=== PATIENT | male | born 1945 | race Caucasian/White ===

== ENCOUNTER 2022-04-02 16:53 | Inpatient (IN) | payer MEDICARE, OTHER, SELFPAY ==
--- NOTE | ~2022-04-02 | CT_ITS ---
EXAMINATION: CT ABDOMEN AND PELVIS WITHOUT CONTRAST CLINICAL INFORMATION: Fever, abd pain, bloody diarrhea, ? Isch bowel COMPARISON: CTA abdomen 03/11/2007 TECHNIQUE: Multidetector volumetric imaging was performed from the superior aspect of the liver through the pubic symphysis. Sagittal and coronal reformatted images were obtained on the technologist's workstation. This CT examination was performed using dose optimization techniques as appropriate, variously including the following: *Automated exposure control *Adjustment of mA and/or kV according to patient size (this includes techniques or standardized protocols for targeted exams where dose is matched to indication/reason for exam; i.e. extremities or head) *Use of iterative reconstruction technique DLP: 798 mGy-cm FINDINGS: LUNG BASES: The visualized lung bases are unremarkable. LIVER, GALLBLADDER, AND BILIARY TREE: The liver is normal in size, shape, and attenuation. No focal hepatic lesion or biliary ductal dilatation is present. The gallbladder is unremarkable with no evidence of radiopaque gallstones, gallbladder wall thickening, or obvious pericholecystic inflammatory changes. PANCREAS: Unremarkable. SPLEEN: Unremarkable. ADRENAL GLANDS: Unremarkable. KIDNEYS AND URETERS: The kidneys are normal in size, shape, and attenuation. A huge benign Bosniak class I right renal cyst compresses the right kidney and has increased in size significantly from 2007 when this measured 8.6 cm and currently measures 14.2 cm in greatest transverse dimension. 2 smaller Bosniak class I cysts are noted in the left kidney the largest measuring 3.4 cm. No solid renal masses are seen. No hydronephrosis, hydroureter, or calculi seen. No perinephric stranding. BLADDER: Obscured by artifact from left hip prosthesis. GASTROINTESTINAL TRACT: There is a grossly abnormal loop of sigmoid colon with marked fusiform dilatation measuring 11.3 cm in greatest dimension. Inflammatory changes are present around this loop worrisome for ischemia. This is a completely new finding when compared to the prior CT scan from 2006. The remainder of the colon is unremarkable. No significant small bowel dilatation is seen. ABDOMINAL WALL: No significant hernia is appreciated. LYMPH NODES: No retroperitoneal lymphadenopathy. VASCULAR: At the time of the 2006 CTA, an abdominal aortic aneurysm was present along with iliac artery dilatation and fusiform dilatation of the common femoral arteries. Marked calcification is present in these vessels now and the patient appears to have undergone a aortobifemoral bypass graft which is not opacified on the current study. PELVIC VISCERA: Prostate obscured by artifact from left hip prosthesis. OSSEOUS STRUCTURES: Degenerative changes present in the spine with grade 1 anterolisthesis of L5 upon S1. Left hip prosthesis present. CT/CT abdomen pelvis wo IV con IMPRESSION: 1. Markedly abnormal loop of sigmoid colon with surrounding inflammatory changes worrisome for ischemia or colitis . No free air, pneumatosis or free fluid is seen. 2. Incidental note made of bilateral benign Bosniak class I renal cysts which need no further imaging or follow-up. 3. Suspect aortobifemoral bypass graft for AAA which is not opacified on the current study. 4. Degenerative changes in the spine with grade 1 anterolisthesis of L5 upon S1. Fleischner guidelines were followed. This critical result was discussed with Dr. Gamboa at 10:15 PM on the day the exam and it was ascertained that the content and urgency of the report was understood at the time of direct communication.
--- NOTE | ~2022-04-02 | XR_ITS ---
EXAMINATION: XR CHEST CLINICAL INFORMATION: Fever COMPARISON: None TECHNIQUE: Frontal view of the chest was obtained. FINDINGS: Rotated positioning. Cardiac and mediastinal silhouette is within normal limits. Bilateral first costochondral junction projects over the medial aspect of bilateral upper lungs, limiting evaluation of the underlying structures. In the lungs are otherwise, no focal consolidation is seen. No effusion, edema or pneumothorax. Degenerative changes in the spine. Upper abdomen appears unremarkable. There is a 8 mm rounded density in the proximal humeral metaphysis, could be related to red marrow, with a lesion in this region difficult to exclude. XR/XR chest 1V IMPRESSION: No evidence of focal consolidation. 8mm density projected over the right proximal humeral metaphysis, indeterminate. This could represent normal variant marrow, with a subtle lesions region difficult exclude. Recommended follow-up dedicated humerus radiographs for further evaluation..
--- NOTE | ~2022-04-02 | XR_ITS ---
EXAMINATION: XR HUMERUS, RIGHT CLINICAL INFORMATION: Lesion on chest radiograph COMPARISON: Chest radiograph 04/02/2022 TECHNIQUE: AP and lateral views of the right humerus. FINDINGS: The 8mm round density projecting over the proximal right humeral diaphysis on the chest radiograph is no longer identified on the dedicated right humerus radiographs and may have been external to the patient. No suspicious bone lesion. There is moderate acromioclavicular and glenohumeral osteoarthritis. No acute osseous abnormality. XR/XR humerus RT IMPRESSION: No suspicious findings. The 8 mm round density projecting over the proximal right humeral diaphysis on the chest radiograph is no longer identified and may have been external to the patient.
[2022-04-02 16:39] VITALS: BP 116/80; PULSE 72; O2SAT 97
[2022-04-02 17:01] VITALS: BP 101/44; RESP 20; TEMP 36.6; BMI 22.1
[2022-04-02 17:12] VITALS: BP 101/44; PULSE 76; RESP 16; TEMP 38.3; O2SAT 76; BMI 20.3
--- NOTE | 2022-04-02 17:19 | ED_ITS ---
HPI - General Adult General Chief complaint: General Medical Stated complaint: bilateral lower leg swelling Source: patient and EMS Limitations: other (Dementia with inability to recall history) History of Present Illness HPI narrative: Patient apparently lives alone with family that checks in on him daily. He was complaining of leg pain and EMS was called. Patient of self complains of leg pain and diarrhea. He is unable to convey how long he has had the symptoms or if he has any other symptoms. Related Data Allergies Allergy/AdvReac Type Severity Reaction Status Date / Time Unable to Assess Allergy Verified 04/02/22 17:15 Review of Systems Review of Systems: Patient unable to answer review of systems questions secondary to dementia [facility] Social History Social History Advance Directives: No Advance Directives Information Provided: No Physical Exam ED Vital Signs: Vital Signs - 24 hr 04/02/22 17:01 04/02/22 17:12 04/02/22 21:33 Temperature 97.8 F 101 F H 97.8 F Pulse Rate 76 Respiratory Rate 20 16 Blood Pressure 101/44 L 101/44 L Pulse Oximetry 76 L Oxygen Delivery Method Room Air BMI result Body Mass Index 20.3 Const Other: Patient is awake complaining of feeling hungry and bilateral leg pain. He had an episode of maroon bloody diarrhea here in the emergency department but denies having bloody diarrhea Blood pressure is 101/44. Oxygen saturation is 76 but with a poor waveform and patient has nose obvious signs of respiratory distress. Is febrile to 101 degrees F HENMT Other: Normocephalic atraumatic Neck Other: No meningeal signs Resp Other: Clear and equal bilaterally without wheezes rales or rhonchi Cardio Other: Regular rate and rhythm without murmurs rubs or gallops GI Other: Soft. His abdomen is distended. No tenderness on exam. Hyperactive bowel sounds Skin Other: In general warm pink and dry. Bilateral lower extremities from the knees to the ankles are very erythematous, warm, indurated. No obvious abscesses. Neuro Other: Nonfocal neuro exam. Patient is confused to person place time and event. Extrem Other: See the above skin exam. No obvious extremity trauma Course Course Course Narrative: Patient with multiple issues. He is febrile with an obvious bilateral lower extremity cellulitis. He is not hypotensive but sepsis is certainly possible. He is also having maroon apparently bloody diarrhea. He is unable to recall what medications he is on or if he takes blood thinners. His abdomen is distended but nontender. He is reading is hypoxic but does not have respiratory symptoms and does appear mottled and clamped down, so likely this is an apparent reading. Will treat with IV fluids and monitor saturation. IV fluids, 30 mL/kilos sepsis protocol. IV vanco and Zosyn for probable cellulitis as the source. Protonix IV for GI bleed Type and screen 18:59. Attempted to call family member, Dread Diane, at [phone]. Unsuccessful 19:39. Chest x-ray shows nonspecific nonacute lesion over right humerus with follow-up humerus x-ray recommended. X-ray ordered 22:38. Follow-up x-ray of humerus shows no evidence of pathology. CT scan, however, shows large dilated loop of sigmoid bowel with surrounding inflammatory changes. Concern for infection versus ischemia. He has a normal white count and normal lactic acid however. But given fever and hemoglobin of 8.4, will continue with plan for broad- spectrum antibiotics and hospitalization. Will also trend his hemoglobin and lactic acid. Case was discussed with surgery, Dr. Forman, who will consult in the morning. Medications Administered Discontinued Medications Generic Name Dose Route Start Last Admin Trade Name Freq PRN Reason Stop Dose Admin Acetaminophen 975 mg 04/02/22 17:15 04/02/22 19:17 Acetaminophen 325 Mg Tablet PO 04/02/22 17:16 975 mg ONCE ONE Administration Haloperidol Lactate 2 mg 04/02/22 17:15 04/02/22 19:11 Haloperidol Lactate 5 Mg/Ml Vial IVPUSH 04/02/22 17:16 Not Given ONCE ONE Haloperidol Lactate 5 mg 04/02/22 19:09 04/02/22 19:11 Haloperidol Lactate 5 Mg/Ml Vial IM 04/02/22 19:10 5 mg STAT STA Administration Piperacillin Sod/Tazobactam 50 mls @ 100 mls/hr 04/02/22 17:15 04/02/22 21:13 Sod 3.375 gm/ Sodium Chloride IV 04/02/22 17:44 Infused ONCE ONE Infusion Vancomycin HCl 1,500 mg/ 500 mls @ 333.333 mls/hr 04/02/22 17:15 04/02/22 21:10 Sodium Chloride IV 04/02/22 18:44 333.33 mls/hr POSTOP ONE Administration Sodium Chloride 2,040 mls @ 2,040 mls/hr 04/02/22 17:15 04/02/22 19:26 Ns 30 ml/kg infuse over 1 hr (2040 ml) 04/02/22 18:14 2,040 mls/hr IV Administration .Q1H STA Pantoprazole Sodium 80 mg 04/02/22 17:26 04/02/22 19:17 Pantoprazole Sodium 40 Mg/10 Ml Vial IVPUSH 04/02/22 17:27 80 mg ONCE ONE Administration Medical Decision Making Lab Data Result Diagrams: 04/02/22 19:35 04/02/22 19:35 Labs: Lab Results 04/02/22 04/02/22 04/02/22 Range/Units 19:35 19:35 19:35 WBC 7.4 (4.8-10.8) X10*3/uL RBC 2.98 L (4.60-5.80) X10*6/uL Hgb 8.2 L (14.0-18.0) g/dl Hct 26.3 L (42.0-52.0) % MCV 88.3 (80.0-98.0) fL MCH 27.5 (27.0-33.0) pg MCHC 31.2 (31.0-36.0) g/dl RDW 17.0 H (11.0-16.0) % Plt Count 400 (160-400) X10*3/uL MPV 7.8 L (9.4-12.4) fL Immature Gran % (Auto) 2.6 H (0.0-0.4) % Neut % (Auto) 58.6 (45-73) % Lymph % (Auto) 19.1 L (20-40) % [place] % (Auto) 17.5 H (2-11) % Eos % (Auto) 1.7 (0-4) % Baso % (Auto) 0.5 (0-2) % Lymph # (Auto) 1.4 (1.2-4.9) X10*3/uL [place] # (Auto) 1.3 H (0.1-1.2) X10*3/uL Eos # (Auto) 0.1 (0.0-0.4) X10*3/uL Baso # (Auto) 0.0 (0.0-0.2) X10*3/uL Abs Immat Gran (auto) 0.19 H (0.00-0.03) X10*3/uL Absolute Neuts (auto) 4.4 (2.0-8.3) x10*3/uL Absolute Nucleated RBC 0.000 (0.0-0.012) X10*3/uL Nucleated RBC % (auto) 0.0 (0.0-0.2) /100WBC Sodium 138 (135-145) mmol/L Potassium 4.3 (3.3-5.1) mmol/L Chloride 108 (96-108) mmol/L Carbon Dioxide 24 (22-29) mmol/L Anion Gap 10 L (12-20) BUN 22 H (9-16) mg/dL Creatinine 0.90 (0.5-1.4) mg/dL Estim Creat Clear Calc 68.2 Estimated GFR > 60 Random Glucose 87 (60-115) mg/dL Lactic Acid 1.6 (0.5-2.0) mmol/L Calcium 7.9 L (8.4-10.2) mg/dL Total Bilirubin 0.3 (0.0-1.0) mg/dL AST 10 (5-37) U/L ALT 10 (0-40) U/L Alkaline Phosphatase 71 (39-117) U/L Troponin I High Sens (<3.5-35.0) ng/L Total Protein 5.0 L (6.5-8.0) g/dL Albumin 2.3 L (3.5-5.0) g/dL 04/02/22 Range/Units 19:35 WBC (4.8-10.8) X10*3/uL RBC (4.60-5.80) X10*6/uL Hgb (14.0-18.0) g/dl Hct (42.0-52.0) % MCV (80.0-98.0) fL MCH (27.0-33.0) pg MCHC (31.0-36.0) g/dl RDW (11.0-16.0) % Plt Count (160-400) X10*3/uL MPV (9.4-12.4) fL Immature Gran % (Auto) (0.0-0.4) % Neut % (Auto) (45-73) % Lymph % (Auto) (20-40) % [place] % (Auto) (2-11) % Eos % (Auto) (0-4) % Baso % (Auto) (0-2) % Lymph # (Auto) (1.2-4.9) X10*3/uL [place] # (Auto) (0.1-1.2) X10*3/uL Eos # (Auto) (0.0-0.4) X10*3/uL Baso # (Auto) (0.0-0.2) X10*3/uL Abs Immat Gran (auto) (0.00-0.03) X10*3/uL Absolute Neuts (auto) (2.0-8.3) x10*3/uL Absolute Nucleated RBC (0.0-0.012) X10*3/uL Nucleated RBC % (auto) (0.0-0.2) /100WBC Sodium (135-145) mmol/L Potassium (3.3-5.1) mmol/L Chloride (96-108) mmol/L Carbon Dioxide (22-29) mmol/L Anion Gap (12-20) BUN (9-16) mg/dL Creatinine (0.5-1.4) mg/dL Estim Creat Clear Calc Estimated GFR Random Glucose (60-115) mg/dL Lactic Acid (0.5-2.0) mmol/L Calcium (8.4-10.2) mg/dL Total Bilirubin (0.0-1.0) mg/dL AST (5-37) U/L ALT (0-40) U/L Alkaline Phosphatase (39-117) U/L Troponin I High Sens 3.4 (<3.5-35.0) ng/L Total Protein (6.5-8.0) g/dL Albumin (3.5-5.0) g/dL Critical Care Time Critical Care Time Critical Care Time: Yes Total Critical Care Time: 90 Attestation: Patient with possible sepsis as well as active GI bleed. Critical care time outside of separately billable procedures
--- NOTE | 2022-04-02 18:03 | PC.NURSE ---
PT COMBATIVE REFUSING ALL CARE, DR WILEY AWARE, PT ATTEMPTING TO LEAVE SEVERAL TIMES CAMERA 39 PLACED IN ROOM
[2022-04-02] MEDS: Haloperidol Lactate 5 MG/ML VIAL IM (19:11)
--- NOTE | 2022-04-02 19:11 | PC.NURSE ---
PT FINALLY ALLOWED STAFF TO OBTAIN AN IV
[2022-04-02] MEDS: Pantoprazole Sodium 40 MG/10 ML VIAL 80 MG IVPUSH (19:17)
[2022-04-02] MEDS: Acetaminophen 325 MG TABLET 975 MG PO (19:17)
[2022-04-02] MEDS: Piperacillin Sodium/Tazobactam 3.375 GM in 0.9 % Sodium Chloride 50 ML IV (19:25)
[2022-04-02] MEDS: 0.9 % Sodium Chloride 2,040 ML 2040 ML IV (19:26)
[2022-04-02 19:43] LABS: MANUAL DIFF FLAG NO
[2022-04-02 19:44] LABS: Basophils Percent Auto 0.5 % (0-2); Eosinophils Absolute Auto 0.1 X10*3/uL (0.0-0.4); Eosinophils Percent Auto 1.7 % (0-4); Hematocrit 26.3 % (42.0-52.0); Hemoglobin 8.2 g/dl (14.0-18.0); Imm Gran Abs Auto 0.19 X10*3/uL (0.00-0.03); Imm Gran Pct Auto 2.6 % (0.0-0.4); Lymphocytes Absolute Auto 1.4 X10*3/uL (1.2-4.9); Lymphocytes Percent Auto 19.1 % (20-40); Mean Corpuscular HGB Conc 31.2 g/dl (31.0-36.0); Mean Corpuscular Hemoglobin 27.5 pg (27.0-33.0); Mean Corpuscular Volume 88.3 fL (80.0-98.0); Mean Platelet Volume 7.8 fL (9.4-12.4); Monocytes Absolute Auto 1.3 X10*3/uL (0.1-1.2); Monocytes Percent Auto 17.5 % (2-11); Neutrophils Absolute Auto 4.4 x10*3/uL (2.0-8.3); Neutrophils Percent Auto 58.6 % (45-73); Platelet Count 400 X10*3/uL (160-400); Red Blood Count 2.98 X10*6/uL (4.60-5.80); White Blood Count 7.4 X10*3/uL (4.8-10.8)
[2022-04-02 19:55] LABS: Lactic Acid 1.6 mmol/L (0.5-2.0)
[2022-04-02 19:59] LABS: Alanine Aminotransferase 10 U/L (0-40); Albumin Level 2.3 g/dL (3.5-5.0); Alkaline Phosphatase 71 U/L (39-117); Anion Gap 10 (12-20); Aspartate Amino Transferase 10 U/L (5-37); Bilirubin Total 0.3 mg/dL (0.0-1.0); Blood Urea Nitrogen 22 mg/dL (9-16); Calcium 7.9 mg/dL (8.4-10.2); Carbon Dioxide 24 mmol/L (22-29); Chloride 108 mmol/L (96-108); Creatinine Clr Calc Pharmacy 68.2; Estimated Glomerular Filt Rate > 60; Glucose Random 87 mg/dL (60-115); Potassium 4.3 mmol/L (3.3-5.1); Sodium 138 mmol/L (135-145)
[2022-04-02 20:05] LABS: Troponin-I High Sensitivity 3.4 ng/L (<3.5-35.0)
[2022-04-02] MEDS: vancomycin HCL 1,500 MG in 0.9 % Sodium Chloride 500 ML 333.33 MG IV (21:10)
[2022-04-02 21:33] VITALS: TEMP 36.6
[2022-04-02 23:21] VITALS: BP 108/66; PULSE 70; RESP 11; TEMP 36.6; O2SAT 97
--- NOTE | 2022-04-02 23:25 | MHC.EDTECH ---
Patient Requesting Food. Informed him We have to wait for he okay from the Doctor, before I can. Once We have the Okay, I will bring him something to eat
[2022-04-02 23:30] LABS: Lactate Dehydrogenase 135 U/L (118-273)
[2022-04-02 23:41] LABS: OBS Int Ctl Valid YES; OBS1 POSITIVE (NEGATIVE)
[2022-04-03 00:42] LABS: INTERNATIONAL NORM RATIO 1.1 (0.9-1.1); Prothrombin Time 12.6 SEC (10.0-13.1)
[2022-04-03] MEDS: cefTRIAXone sodium 1 GM in 0.9 % Sodium Chloride 50 ML IV (01:49)
[2022-04-03] MEDS: 0.9 % Sodium Chloride Flush 3 ML SYRINGE IVFLUSH (01:51)
[2022-04-03] MEDS: Lactated Ringers 1,000 ML 100 ML IVCONT ×3 (01:54→17:15)
[2022-04-03] MEDS: metroNIDAZOLE/NS 500 MG/100 ML PIGGYBACK 100 MG IV ×3 (01:59→18:39)
[2022-04-03 02:15] VITALS: BP 95/51; PULSE 58; RESP 14; TEMP 36.8; O2SAT 96
--- NOTE | 2022-04-03 02:55 | PC.NURSE ---
Patient is asleep. No apparent distress. Will continue to monitor.
[2022-04-03 06:34] VITALS: BP 102/61; RESP 14; TEMP 36.6; O2SAT 96
[2022-04-03 06:38] LABS: Appearance Urine Clear; Color Urine Yellow; Glucose Urine UA Negative (Negative); Leukocyte Esterase Urine Negative (Negative); Nitrite Urine Negative (Negative); Specific Gravity - Urine 1.015 (1.005-1.025); Urine Blood Negative (Negative); Urine Ketones Negative (Negative); Urine Protein Negative (Neg-Trace)
--- NOTE | 2022-04-03 06:49 | P.CONGS_ITS ---
History of Present Illness Consult details Consult date: 04/03/22 Narrative: The patient is a 76-year-old gentleman who appears to have dementia and is a poor historian. He is seen at the request of the emergency department staff because of fever, lower extremity cellulitis and in his workup, he was found to be anemic and had a maroon stool. CT demonstrates of fusiform dilated segment of sigmoid colon that was interpreted by radiology as possible ischemia. As noted, the patient is a poor historian and reports a longstanding issue with bowel movements noting fluid builds up. He is unsure if he has been passing gas since he has been in the hospital. He denies chest pain, difficulty breathing or shortness of breath, but he is unable to provide any past medical history. When asked about abdominal pain, he denies it. He further denies chest pain, difficulty breathing, shortness of breath or upper lower extremity weakness Review of Systems Review of Systems: Yes all other systems are reviewed and are negative Constitutional: Constitutional: Reports as per [facility] Social History Social History Alcohol intake: unknown Smoked in Last 30 Days: No Use of substances other than those prescribed or required for medical reasons: No Advance Directives: No Advance Directives Information Provided: No Meds Allergies Allergy/AdvReac Type Severity Reaction Status Date / Time Unable to Assess Allergy Verified 04/02/22 17:15 Active Medications: Current Medications Acetaminophen (Acetaminophen 325 Mg Tablet) 650 mg PO Q6H PRN PRN Reason: Pain, Mild (Pain Scale 1-3) Lactated Ringer's (Lr) 1,000 mls @ 100 mls/hr IVCONT .Q10H [facility] Last Admin: 04/03/22 01:54 Dose: 100 mls/hr Ceftriaxone Sodium 1 gm/ (Sodium Chloride) 50 mls @ 100 mls/hr IV Q24H [facility] Last Infusion: 04/03/22 02:12 Dose: Infused Metronidazole (Flagyl) 500 mg in 100 mls @ 100 mls/hr IV Q8H [facility] Last Infusion: 04/03/22 03:15 Dose: Infused Ondansetron HCl (Ondansetron Hcl 4 Mg/2 Ml Vial) 4 mg IVPUSH Q8H PRN PRN Reason: Nausea and Vomiting Sodium Chloride (0.9 % Sodium Chloride Flush 3 Ml Syringe) 3 ml IVFLUSH QSHIFT [facility] Last Admin: 04/03/22 01:51 Dose: 3 ml Home Medications Medication Instructions Recorded Confirmed Last Taken Type acetaminophen 650 mg 1 tab PO Q8H PRN pain 04/03/22 04/03/22 Unknown History tablet,extended release (8 Hour Pain Reliever) aspirin 81 mg tablet,delayed 81 mg PO DAILY 04/03/22 04/03/22 Unknown History release atorvastatin 40 mg tablet 1 tab PO DAILY 04/03/22 04/03/22 Unknown History pantoprazole 40 mg tablet,delayed 1 tab PO DAILY 04/03/22 04/03/22 Unknown History release tamsulosin 0.4 mg capsule 1 cap PO DAILY 04/03/22 04/03/22 Unknown History Physical Exam Vital Signs: Vital Signs: Last Vital Signs Temp 97.8 F 04/03/22 06:34 Pulse 58 04/03/22 02:15 Resp 14 04/03/22 06:34 BP 102/61 04/03/22 06:34 Pulse Ox 96 04/03/22 06:34 O2 Del Method 04/03/22 06:34 BMI result Body Mass Index 20.3 The patient is non-toxic & cachectic NC/AT, PERRLA, EOMI The patient is tangential and cannot answer questions regarding his health or medications Sclera anicteric conjunctiva pink and moist Oropharynx is clear with no aphthous ulcers, Mallampati class 2, mucous membranes moist Neck is supple with no masses, adenopathy or bruits Heart is regular, normal S1-S2 no rubs or murmurs Lungs are clear and equal anteriorly with no audible wheezing, rubs or dullness to percussion Abdomen is overweight with no demonstrable hernias. No HSM, rebound, rigidity, guarding, masses or bruits are present. Rectal exam is deferred Skin has good turgor and is free of rashes Extremities free of cyanosis clubbing edema, mild cellulitis is noted on both lower legs with no discrete abscess Results Labs Result diagrams: 04/03/22 06:04 04/03/22 06:04 Labs: Abnormal lab results 04/02/22 04/02/22 Range/Units 19:35 19:35 RBC 2.98 L (4.60-5.80) X10*6/uL Hgb 8.2 L (14.0-18.0) g/dl Hct 26.3 L (42.0-52.0) % RDW 17.0 H (11.0-16.0) % MPV 7.8 L (9.4-12.4) fL Immature Gran % (Auto) 2.6 H (0.0-0.4) % Lymph % (Auto) 19.1 L (20-40) % [place] % (Auto) 17.5 H (2-11) % [place] # (Auto) 1.3 H (0.1-1.2) X10*3/uL Abs Immat Gran (auto) 0.19 H (0.00-0.03) X10*3/uL Anion Gap 10 L (12-20) BUN 22 H (9-16) mg/dL Calcium 7.9 L (8.4-10.2) mg/dL Total Protein 5.0 L (6.5-8.0) g/dL Albumin 2.3 L (3.5-5.0) g/dL Short CBC 04/02/22 Range/Units 19:35 WBC 7.4 (4.8-10.8) X10*3/uL Hgb 8.2 L (14.0-18.0) g/dl Hct 26.3 L (42.0-52.0) % Plt Count 400 (160-400) X10*3/uL BMP 04/02/22 19:35 Sodium 138 Potassium 4.3 Chloride 108 Carbon Dioxide 24 BUN 22 H Creatinine 0.90 Calcium 7.9 L Liver Function 04/02/22 Range/Units 19:35 Total Bilirubin 0.3 (0.0-1.0) mg/dL AST 10 (5-37) U/L ALT 10 (0-40) U/L Alkaline Phosphatase 71 (39-117) U/L Albumin 2.3 L (3.5-5.0) g/dL Urine 04/03/22 Range/Units 06:26 Urine Color Yellow Urine Appearance Clear Urine pH 7.0 (5.0-9.0) Ur Specific [place] 1.015 (1.005-1.025) Urine Protein Negative (Neg-Trace) mg/dL Urine Glucose (UA) Negative (Negative) mg/dL All other labs normal. Imaging Chest x-ray: report reviewed Abdomen CT scan report/results: report reviewed and image reviewed CT scan - pelvis: report reviewed and image reviewed Assessment and Plan (1) Cellulitis: Status: Acute (2) Colitis: Status: Acute (3) Frailty syndrome in geriatric patient: Status: Acute (4) Anemia: Status: Acute Plan In my review of the CT, I agree there is an abnormal segment of sigmoid colon with no free air or evidence of a perforation. Would recommend GI evaluation and possible flex sig to assess for etiology and excluding volvulus. Unfortunately, lack of prior medical records and meaningful input from the patient will make this complicated. Will follow. Please call with surgical questions Time Spent With Patient Time: Total time managing care of this patient today ____ minutes. Procedures Date of Service Date of Service: 04/03/22
[2022-04-03 06:55] LABS: Basophils Absolute Auto 0.1 X10*3/uL (0.0-0.2); Basophils Percent Auto 1.1 % (0-2); Eosinophils Absolute Auto 0.2 X10*3/uL (0.0-0.4); Eosinophils Percent Auto 3.7 % (0-4); Hematocrit 22.1 % (42.0-52.0); Imm Gran Pct Auto 4.3 % (0.0-0.4); Lymphocytes Absolute Auto 1.1 X10*3/uL (1.2-4.9); Lymphocytes Percent Auto 23.3 % (20-40); MANUAL DIFF FLAG SCAN; Mean Corpuscular HGB Conc 31.7 g/dl (31.0-36.0); Mean Corpuscular Volume 88.4 fL (80.0-98.0); Mean Platelet Volume 7.9 fL (9.4-12.4); Monocytes Percent Auto 20.9 % (2-11); Neutrophils Absolute Auto 2.2 x10*3/uL (2.0-8.3); Neutrophils Percent Auto 46.7 % (45-73); Platelet Count 367 X10*3/uL (160-400); SCAN SMEAR FLAG 1; White Blood Count 4.6 X10*3/uL (4.8-10.8)
[2022-04-03 07:33] LABS: Anion Gap 10 (12-20); Blood Urea Nitrogen 17 mg/dL (9-16); Calcium 7.5 mg/dL (8.4-10.2); Carbon Dioxide 22 mmol/L (22-29); Chloride 113 mmol/L (96-108); Estimated Glomerular Filt Rate > 60; Glucose Random 75 mg/dL (60-115); Potassium 3.9 mmol/L (3.3-5.1); Sodium 141 mmol/L (135-145)
--- NOTE | 2022-04-03 07:42 | P.HPHOSP_ITS ---
History of Present Illness Date of Service: 04/03/22 Chief Complaint: leg redness 76-year-old male who was a very poor historian due to history of dementia presents to the hospital from home, it appears that daughter versus [id number] was visiting him and called EMS for bilateral leg swelling redness and warm, patient himself is denying any acute complaint, unable to reach the patient's proxy contact number on file and unable to identify the female that called EMS. On arrival to the ED patient was found to have a fever of 101, blood pressure 101/44, Labs are significant for WBC count of 4.6, hemoglobin of 8.2, hematocrit 26.3, INR of 1.1, urine negative Occult blood positive, C diff negative abdomen pelvic CT shows abnormal loop of sigmoid colon with surrounding inflammatory change worsen for ischemic versus colitis, no free air, pneumatosis or free fluid. Patient started on IV antih antibiotics and will be admitted for further management unable to obtain much medical history including past medical, family, social or surgical history Review of Systems Review of Systems: Yes Unobtainable due to mental condition and Unobtainable due to mental status PMFSH Social History Household Members: Unknown / Unable to assess Housing: House Unable to assess alcohol history related to: Unknown Alcohol intake: unknown Patient Tobacco Use Status: Tobacco use Unknown Advance Directives Date on File: 04/03/22 service: No Current occupational status: retired Meds Allergies Allergy/AdvReac Type Severity Reaction Status Date / Time Unable to Assess Allergy Verified 04/02/22 17:15 Active Medications: Current Medications Acetaminophen (Acetaminophen 325 Mg Tablet) 650 mg PO Q6H PRN PRN Reason: Pain, Mild (Pain Scale 1-3) Lactated Ringer's (Lr) 1,000 mls @ 100 mls/hr IVCONT .Q10H [facility] Last Admin: 04/03/22 01:54 Dose: 100 mls/hr Ceftriaxone Sodium 1 gm/ (Sodium Chloride) 50 mls @ 100 mls/hr IV Q24H [facility] Last Infusion: 04/03/22 02:12 Dose: Infused Metronidazole (Flagyl) 500 mg in 100 mls @ 100 mls/hr IV Q8H [facility] Last Infusion: 04/03/22 03:15 Dose: Infused Ondansetron HCl (Ondansetron Hcl 4 Mg/2 Ml Vial) 4 mg IVPUSH Q8H PRN PRN Reason: Nausea and Vomiting Sodium Chloride (0.9 % Sodium Chloride Flush 3 Ml Syringe) [facility] Last Admin: 04/03/22 01:51 Dose: 3 ml Home Medications Medication Instructions Recorded Confirmed Last Taken Type acetaminophen 650 mg 1 tab PO Q8H PRN pain 04/03/22 04/03/22 Unknown History tablet,extended release (8 Hour Pain Reliever) aspirin 81 mg tablet,delayed 81 mg PO DAILY 04/03/22 04/03/22 Unknown History release atorvastatin 40 mg tablet 1 tab PO DAILY 04/03/22 04/03/22 Unknown History pantoprazole 40 mg tablet,delayed 1 tab PO DAILY 04/03/22 04/03/22 Unknown Hi story release tamsulosin 0.4 mg capsule 1 cap PO DAILY 04/03/22 04/03/22 Unknown History Physical Exam Vital Signs and Narrative: Vital Signs: Last Vital Signs Temp 97.8 F 04/03/22 06:34 Pulse 58 04/03/22 02:15 Resp 14 04/03/22 06:34 BP 102/61 04/03/22 06:34 Pulse Ox 96 04/03/22 06:34 O2 Del Method 04/03/22 06:34 BMI result Body Mass Index 20.3 Const: Other: patient is pleasantly confused, not oriented to place or time General: cooperative and no acute distress Eyes: General: appearance normal, both eyes and all related structures Resp: Effort & Inspection: normal respiratory effort Auscultation: clear to auscultation bilaterally Cardio: Rate: regular rate Rhythm: regular rhythm GI: Other: abdomen is soft, nontender Palpation (GI): Soft to palpation Auscultation: normal bowel sounds Skin: General skin exam: no rashes or lesions noted Extrem: Other: bilateral lower extremity erythema, warmth, General: Yes normal to inspection and Yes no pedal edema Results Labs CBC and Chem 7: 04/03/22 14:16 04/03/22 06:04 Labs: Laboratory Results - last 24 hr 04/02/22 04/02/22 04/02/22 19:35 19:35 19:35 MCV 88.3 MCH 27.5 MCHC 31.2 RDW 17.0 H Plt Count 400 MPV 7.8 L Immature Gran % (Auto) 2.6 H Neut % (Auto) 58.6 Lymph % (Auto) 19.1 L [place] % (Auto) 17.5 H Eos % (Auto) 1.7 Baso % (Auto) 0.5 Lymph # (Auto) 1.4 [place] # (Auto) 1.3 H Eos # (Auto) 0.1 Baso # (Auto) 0.0 Abs Immat Gran (auto) 0.19 H Absolute Neuts (auto) 4.4 Absolute Nucleated RBC 0.000 Nucleated RBC % (auto) 0.0 PT INR Anion Gap 10 L Estim Creat Clear Calc 68.2 Estimated GFR > 60 Random Glucose 87 Lactic Acid 1.6 Calcium 7.9 L Total Bilirubin 0.3 AST 10 ALT 10 Alkaline Phosphatase 71 Lactate Dehydrogenase 135 Troponin I High Sens Total Protein 5.0 L Albumin 2.3 L Urine Color Urine Appearance Urine pH Ur Specific [place] Urine Protein Urine Glucose (UA) Urine Ketones Urine Blood Urine Nitrite Ur Leukocyte Esterase Stool Occult Blood Blood Type Antibody Screen 04/02/22 04/02/22 04/02/22 19:35 22:14 23:34 MCV MCH MCHC RDW Plt Count MPV Immature Gran % (Auto) Neut % (Auto) Lymph % (Auto) [place] % (Auto) Eos % (Auto) Baso % (Auto) Lymph # (Auto) [place] # (Auto) Eos # (Auto) Baso # (Auto) Abs Immat Gran (auto) Absolute Neuts (auto) Absolute Nucleated RBC Nucleated RBC % (auto) PT INR Anion Gap Estim Creat Clear Calc Estimated GFR Random Glucose Lactic Acid Calcium Total Bilirubin AST ALT Alkaline Phosphatase Lactate Dehydrogenase Troponin I High Sens 3.4 Total Protein Albumin Urine Color Urine Appearance Urine pH Ur Specific [place] Urine Protein Urine Glucose (UA) Urine Ketones Urine Blood Urine Nitrite Ur Leukocyte Esterase Stool Occult Blood POSITIVE Blood Type O Positive Antibody Screen NEGATIVE 04/03/22 04/03/22 04/03/22 00:26 06:04 06:04 MCV 88.4 MCH 28.0 MCHC 31.7 RDW 17.0 H Plt Count 367 MPV 7.9 L Immature Gran % (Auto) Neut % (Auto) Lymph % (Auto) [place] % (Auto) Eos % (Auto) Baso % (Auto) Lymph # (Auto) [place] # (Auto) Eos # (Auto) Baso # (Auto) Abs Immat Gran (auto) Absolute Neuts (auto) Absolute Nucleated RBC Nucleated RBC % (auto) PT 12.6 INR 1.1 Anion Gap 10 L Estim Creat Clear Calc 73.0 Estimated GFR > 60 Random Glucose 75 Lactic Acid Calcium 7.5 L Total Bilirubin AST ALT Alkaline Phosphatase Lactate Dehydrogenase Troponin I High Sens Total Protein Albumin Urine Color Urine Appearance Urine pH Ur Specific [place] Urine Protein Urine Glucose (UA) Urine Ketones Urine Blood Urine Nitrite Ur Leukocyte Esterase Stool Occult Blood Blood Type Antibody Screen 04/03/22 06:26 MCV MCH MCHC RDW Plt Count MPV Immature Gran % (Auto) Neut % (Auto) Lymph % (Auto) [place] % (Auto) Eos % (Auto) Baso % (Auto) Lymph # (Auto) [place] # (Auto) Eos # (Auto) Baso # (Auto) Abs Immat Gran (auto) Absolute Neuts (auto) Absolute Nucleated RBC Nucleated RBC % (auto) PT INR Anion Gap Estim Creat Clear Calc Estimated GFR Random Glucose Lactic Acid Calcium Total Bilirubin AST ALT Alkaline Phosphatase Lactate Dehydrogenase Troponin I High Sens Total Protein Albumin Urine Color Yellow Urine Appearance Clear Urine pH 7.0 Ur Specific [place] 1.015 Urine Protein Negative Urine Glucose (UA) Negative Urine Ketones Negative Urine Blood Negative Urine Nitrite Negative Ur Leukocyte Esterase Negative Stool Occult Blood Blood Type Antibody Screen Imaging Radiologist's Impressions: Impressions Chest X-Ray 04/02/22 19:05 IMPRESSION: No evidence of focal consolidation. 8mm density projected over the right proximal humeral metaphysis, indeterminate. This could represent normal variant marrow, with a subtle lesions region difficult exclude. Recommended follow-up dedicated humerus radiographs for further evaluation.. Humerus X-Ray 04/02/22 19:55 IMPRESSION: No suspicious findings. The 8 mm round density projecting over the proximal right humeral diaphysis on the chest radiograph is no longer identified and may have been external to the patient. Abdomen/Pelvis CT 04/02/22 21:24 IMPRESSION: 1. Markedly abnormal loop of sigmoid colon with surrounding inflammatory changes worrisome for ischemia or colitis . No free air, pneumatosis or free fluid is seen. 2. Incidental note made of bilateral benign Bosniak class I renal cysts which need no further imaging or follow-up. 3. Suspect aortobifemoral bypass graft for AAA which is not opacified on the current study. 4. Degenerative changes in the spine with grade 1 anterolisthesis of L5 upon S1. Fleischner guidelines were followed. This critical result was discussed with Dr. Gamboa at 10:15 PM on the day the exam and it was ascertained that the content and urgency of the report was understood at the time of direct communication. Assessment and Plan (1) Cellulitis: Status: Acute (2) Colitis: Status: Acute (3) Normocytic anemia: Status: Acute (4) Positive occult stool blood test: Status: Acute Plan 76-year-old male with past medical history of dementia sent in from home due to lower extremity cellulitis found to have GI bleed # bilateral lower extremity cellulitis - has bilateral edema, warmth, tenderness - no leukocytosis at this time, afebrile - will treat with IV antibiotics - follow cultures # colitis - ischemic versus inflammatory versus infectious - GI panel pending - LDH normal - normal lactic acid - will consult GI # normocytic anemia - no previous baseline for comparison - positive occult stool test - at this time will follow CBC - GI consulted - threshold transfusion of less than 7 # positive occult stool blood test - likely secondary to colitis - GI consulted - will keep NPO - follow CBC DVT prophylaxis: SCDs Time Spent With Patient Time: Total time managing care of this patient today ____ minutes. Quality Stroke Does the patient have a stroke diagnosis?: No VTE Prior VTE?: No VTE Risk Level:: Medical - moderate - high VTE Device Contraindication: N/A - Device Ordered VTE Drug Contraindication: Treatment Not Indicated
[2022-04-03 08:06] LABS: SLIDE REVIEW VERIFIED
--- NOTE | 2022-04-03 09:02 | PHA.MEDREC ---
Pharmacy Consult ? Medication Reconciliation Pharmacy has completed the medication reconciliation. Patient is very confused. Spoke to Tammi MAN @ [phone]. Says he has dementia and probably does not take medications but was able share her list which matches the patients claim history Franc
--- NOTE | 2022-04-03 09:39 | PC.NURSE ---
patient is alert, confused. needing frequent reminders that he is npo and in the hospital. ambulated to the bathroom this morning with the morgue technician with a stand by assist.
--- NOTE | 2022-04-03 09:52 | PC.NURSE ---
blood is ready from the blood bank. no consent has been done. hospitalist was marcus texted about the consent..
--- NOTE | 2022-04-03 11:08 | PM.EVENT ---
Event Note Date of Service: 04/03/22 Event Note: Patient seen examined this morning, patient admitted earlier this morning due to bilateral lower extremity swelling and redness,On arrival to the ED patient was found to have a fever of 101, blood pressure 101/44, Labs are significant for? WBC count of 4.6, hemoglobin of 8.2, hematocrit 26.3, chest x-ray showed no infiltrate, CT abdomen showed markedly abnormal lobe sigmoid colon with surrounding inflammatory changes worrisome for ischemia or colitis no free air, pneumatosis or free fluid was seen, patient admitted to [facility] with a diagnosis of bilateral lower extremity cellulitis and abnormal CT with concern for colitis and acute on chronic anemia At present patient is awake with underlying dementia unable to provide any meaningful history but denies chest pain, denies abdominal discomfort denies fever chills On examination however awake alert in no acute distress GI on cough abdomen soft nontender extremities bilateral lower extremity swelling with hyperemia extending to just below knee Abnormal CT scan of abdomen suggestive of possible colitis seen by General surgery they recommend GI consultation for sigmoidoscopy to rule out volvulos Bilateral lower extremity cellulitis continue IV antibiotics Acute on chronic normocytic anemia likely dilutional less likely ischemic colitis no bloody bowel movement as nontender abdomen will follow CBC call family Dread Snider at [phone] left message Follow CBC and clinical course. Time Spent With Patient Time: Total time managing care of this patient today ____ minutes.
--- NOTE | 2022-04-03 11:09 | PC.NURSE ---
Hospitalist is unable to get in touch with family to gain consent for the blood transfusion, per MD will hold off on transfusion at this time
[2022-04-03 11:14] LABS: Adenovirus PCR Not Detected (Not Detect.); Bordetella parapertussis PCR Not Detected (Not Detect.); Bordetella pertussis PCR Not Detected (Not Detect.); Chlamydia pneumoniae PCR Not Detected (Not Detect.); Coronavirus 229E PCR Not Detected (Not Detect.); Coronavirus HKU1 PCR Not Detected (Not Detect.); Coronavirus NL63 PCR Not Detected (Not Detect.); Coronavirus OC43 PCR Not Detected (Not Detect.); Human metapneumovirus PCR Not Detected (Not Detect.); Influenza A PCR Not Detected (Not Detect.); Influenza B PCR Not Detected (Not Detect.); Mycoplasma pneumoniae PCR Not Detected (Not Detect.); Parainfluenza 1 PCR Not Detected (Not Detect.); Parainfluenza 2 PCR Not Detected (Not Detect.); Parainfluenza 3 PCR Not Detected (Not Detect.); Parainfluenza 4 PCR Not Detected (Not Detect.); RSV PCR Not Detected (Not Detect.); Rhino/Enterovirus PCR Not Detected (Not Detect.); SARS-CoV-2 PCR Not Detected (Not Detect.)
[2022-04-03] MEDS: Famotidine/PF 20 MG/2 ML VIAL IVPUSH (12:15)
--- NOTE | 2022-04-03 13:33 | MHC.CM.PN ---
Attempted to meet with patient in regards to discharge planning. Patient has a history of dementia and is currently confused. T/W spoke with patient's moimvo-gh-ihj & HCP, Elisa via telephone at [phone]. Dread is listed as 1st contact and 1st HCP. T/W spoke with Dread. He doesn't want to be a contact or HCP. Dread is Elisa's . Per Elisa, patient lives alone, ambulates with a cane and had no services prior to coming to the hospital. Patient was seeing Dr Peralta at [place]. Elisa has been trying to find a new PCP for patient. Patient typically goes to [facility] for medical issues. Elisa was the one who asked EMS to transport patient to [place]. Copy of HCP obtained from [facility]. Elisa aware patient is currently confused. Elisa states patient has minimal confusion at baseline when at home. However, anytime he is in any setting out of his home, his confusion escalates. Elisa feels patient can safely return home when medically stable. Elisa visits patient every other day at his home. Elisa will transport patient home when medically stable. IMM explained and left bedside. Continue to monitor for d/c needs.
[2022-04-03 14:25] LABS: Hematocrit 26.6 % (42.0-52.0); Hemoglobin 8.4 g/dl (14.0-18.0); Mean Corpuscular HGB Conc 31.6 g/dl (31.0-36.0); Mean Corpuscular Hemoglobin 28.7 pg (27.0-33.0); Mean Corpuscular Volume 90.8 fL (80.0-98.0); Mean Platelet Volume 7.9 fL (9.4-12.4); Platelet Count 417 X10*3/uL (160-400); Red Blood Count 2.93 X10*6/uL (4.60-5.80); Red Cell Distribution Width 17.2 % (11.0-16.0); White Blood Count 5.5 X10*3/uL (4.8-10.8)
[2022-04-03 15:36] VITALS: RESP 19
--- NOTE | 2022-04-03 15:53 | PM.EVENT ---
Event Note Date of Service: 04/03/22 Event Note: GI Consult dictated We will plan for flexible sigmoidoscopy/limited colonoscopy tomorrow for further evaluation Of the rectal bleeding and abnormalities on CT scanning. I discussed this with Elisa Diane, HCP/POA, and she is aware risks and benefits and agrees to proceed. Time Spent With Patient Time: Total time managing care of this patient today ____ minutes.
--- NOTE | 2022-04-03 16:01 | MHC.SHP ---
Pre-Procedural Eval Section A Date of Service: 04/03/22 The patient is an INPATIENT: Yes Changes since office visit: No Cold of Flu in the past 2 weeks, No New Medical Problems, No Changes in Medication and No Patient answered all questions The History & Physical has been completed within 30 days and I have reviewed it.: Yes Section B Chief Complaint: cellulitis, colitis Allergies: Allergies Allergy/AdvReac Type Severity Reaction Status Date / Time Unable to Assess Allergy Verified 04/02/22 17:15 Plan I have reviewed the history and physical and performed a pertinent physical examination on my patient. No changes have occurred unless specified. Time Spent With Patient Time: Total time managing care of this patient today ____ minutes.
[2022-04-03 21:08] VITALS: BP 135/91; PULSE 71; RESP 16; TEMP 36.2
--- NOTE | 2022-04-03 21:46 | PC.NURSE ---
Care of patient assumed in ED Overflow. Patient is alert, extremly confused. He is able to state his name only- disoriented to place/time/situation. He repeatedly asks where his wallet and car are located. Emotional support provided. Patient is ambulatory to restroom with 1-assist. Concern for GI bleed and plan to be NPO at midnight for scope in the morning. Per nursing report (and nursing notes/documentation), patient was going to get blood transfusion earlier but provider unable to get in-touch with proxy (patient himself is not consentable) so provider instructed to hold transfusion, repeat CBC stable afterwards so continuing to hold blood. Patient currently denies pain. He spends several hours shouting out questions from his room, but then eventually falls asleep and is now sleeping comfortably in stretcher with unlabored respirations. Call villar is within reach and patient is located in a spot near the nurses station. Fluids infusing through patent IV. Vitals obtained and stable.
--- NOTE | 2022-04-03 23:53 | PC.NURSE ---
Patient gets out of bed still attached to IV tubing, states he is going to leave and find his car and look for a boston cream donut, and becomes combative with staff. security called and bedside. MD mcdermott made aware and haldol given.
[2022-04-03 23:54] VITALS: BP 140/80; PULSE 115; RESP 19; O2SAT 94
[2022-04-04] VITALS (11 sets, daily range): BP systolic 104–130; BP diastolic 63–75; PULSE 58–88; RESP 16–20; TEMP 36.3–36.9; O2SAT 95–100
[2022-04-04] MEDS: 0.9 % Sodium Chloride Flush 3 ML SYRINGE IVFLUSH ×3 (00:05→22:41)
[2022-04-04] MEDS: Haloperidol Lactate 5 MG/ML VIAL IVPUSH (00:05)
[2022-04-04] MEDS: cefTRIAXone sodium 1 GM in 0.9 % Sodium Chloride 50 ML IV (00:50)
--- NOTE | 2022-04-04 00:58 | PC.NURSE ---
Patient again tries to get out of bed and leave. He states he's looking for a [place] [employer] donut. He becomes combative when attempts are made to keep him in bed, hitting the STABLE HELPER and becoming verbally assaultive. MD Raymond made aware. Patient assisted with urinal and all attempts made to keep patient comfortable.
[2022-04-04] MEDS: diphenhydrAMINE HCL 50 MG/ML VIAL 25 MG IVPUSH ×2 (01:02→22:41)
[2022-04-04] MEDS: metroNIDAZOLE/NS 500 MG/100 ML PIGGYBACK 100 MG IV ×2 (02:28→17:16)
--- NOTE | 2022-04-04 02:31 | PC.NURSE ---
Addendum entered by Mandy Rodney RN 04/04/22 06:49: 0649: patient awakens and reports need for bowel movement. he doesn't like to ambulate with assistance but is very unsteady on his feet. he hits staff when we try to help him walk/standby for assist, but after many minutes able to ambulate to and from the restroom while patient berates staff throughout. patient now back in bed and requires many minutes of verbal redirection and reassurance. patient is angry that hospital bed doesn't vibrate. Addendum entered by Mandy Rodney RN 04/04/22 04:15: 0416: patient again awakens and reports need for bowel movement. he rips off his hospital gown and nakedly walks through the nurses station, unable to be redirected. he is very unsteady on his feet. he hits/swats staff away trying to help him. he is eventually guided to restroom (as he continues to swear profanities), has a bowel movement, then is guided back into his stretcher- repositioned and blankets re-applied. patient has had a very difficult night in the ED- despite medications he has been awake/combative/restless almost all night. Original Note: Patient awakens and begins screaming, stating he needs to have a bowel movement. He ambulates to restroom with 2-assist- he remains confused and intermittently combative, hitting this RN and BUSINESS INSIGHT AND ANALYTICS MANAGER while trying to help him walk. +nonbloody BM in toilet then ambulates back to room and is tucked into bed.
--- NOTE | 2022-04-04 02:48 | CONS_ITS ---
DATE OF SERVICE: 04/03/2022 REFERRING PHYSICIAN: Rich Pradhan MD REASON FOR CONSULTATION: Rectal bleeding and anemia. HISTORY OF PRESENT ILLNESS: The patient is a confused 76-year-old man who was brought to the emergency room because of leg swelling and redness. During his emergency evaluation, he was reported to have rectal bleeding with passage of maroon bloody diarrhea per the emergency physician's notes. He underwent subsequent evaluation with CT scanning of the abdomen and pelvis, which is reviewed. This is interpreted as showing an abnormal loop of sigmoid colon with dilation measuring 11.3 in greatest dimension with pericolonic inflammatory changes suspicious for ischemia. I reviewed this with Dr. Haro, and it does not appear that this is a volvulus. The patient denies any complaints of abdominal pain except the sensation of having to urinate and states his stools at home have been liquid and mushy, although he does have dementia and is fairly confused. According to family members, he has never had a colonoscopy. Laboratory studies on admission showed a hematocrit of 26.3, which was repeated this morning and was low at 22.1. A followup hematocrit this afternoon was 26.6. There have been no blood transfusions according to his electronic medical record. He does have a history of chronic anemia based on outside records. PAST MEDICAL HISTORY: 1. Anemia. 2. Dementia. 3. BPH. 4. Hypertension. 5. Hyperlipidemia. 6. Gastritis with history of upper GI bleed. 7. Ruptured abdominal aortic aneurysm, status post repair. 8. Postoperative infected graft. 9. Peripheral arterial disease. MEDICATIONS: His medication list on admission is reviewed. ALLERGIES: THERE ARE NONE REPORTED. FAMILY HISTORY: Unobtainable. SOCIAL HISTORY: He lives at home and has family that checks up on him. There is no history of substance abuse. REVIEW OF SYSTEMS: This is not obtainable. PHYSICAL EXAMINATION: GENERAL: Shows an elderly male who is disheveled and confused, lying in bed. VITAL SIGNS: Reviewed in the electronic medical records and are stable. SKIN: Anicteric. HEENT: Shows no scleral icterus. NECK: Without lymphadenopathy or thyromegaly. LUNGS: Clear. HEART: Shows a regular rate and rhythm. S1, S2. No murmur. ABDOMEN: Soft without focal masses or tenderness. Bowel sounds are present. No organomegaly is noted. EXTREMITIES: Show edema and changes consistent with his diagnosis of cellulitis. LABORATORY DATA: Review of his CT scan shows the findings as discussed above. IMPRESSION: Abnormal CT scan with rectal bleeding. The differential diagnosis for this includes infectious colitis, ischemic colitis and inflammatory bowel disease, which seems less likely. Given his vascular history, ischemic colitis seems more likely. I discussed flexible sigmoidoscopy and colonoscopy with Elisa Diane , who is his power of patent prosecution attorney and healthcare proxy. She understands risks and benefits and agrees to proceed. This will be arranged for tomorrow following bleed under an enema administration. Thanks for asking me to see him. I will follow him in the hospital with you. MD TRACY Pike/LIZZY / [phone]
--- NOTE | 2022-04-04 05:04 | PC.NURSE ---
This RN confirms with MD Venice Raymond that we will continue to HOLD blood transfusion at this time. Last CBC reviewed and stable. No bright red stools overnight. Planning for scope this AM.
--- NOTE | 2022-04-04 09:44 | PC.NURSE ---
pt off unit to [facility]
[2022-04-04] MEDS: Lactated Ringers 1,000 ML 60 ML IVCONT ×2 (09:45→13:51)
--- NOTE | 2022-04-04 10:42 | P.CONAN_ITS ---
[facility] Active Problems Active Problems: All Active Problems (Updated 04/03/22 @ 07:07 by Tony Forman MD) Anemia (Acute) Frailty syndrome in geriatric patient (Acute) Cellulitis (Acute) Colitis (Acute) Family History Family history of problems with anesthesia: No Surgical History History of Problems with Anesthesia: No Social History Social History Alcohol intake: unknown Smoked in Last 30 Days: No Use of substances other than those prescribed or required for medical reasons: Unable to respond Advance Directives: Yes Advance Directives on File: Yes Advance Directives Date on File: 04/03/22 service: No Current occupational status: retired Meds Allergies Allergy/AdvReac Type Severity Reaction Status Date / Time Unable to Assess Allergy Verified 04/02/22 17:15 Active Medications: Current Medications Acetaminophen (Acetaminophen 325 Mg Tablet) 650 mg PO Q6H PRN PRN Reason: Pain, Mild (Pain Scale 1-3) Famotidine (Famotidine/Pf 20 Mg/2 Ml Vial) 20 mg IVPUSH DAILY [facility] Last Admin: 04/04/22 09:45 Dose: Not Given Lactated Ringer's (Lr) 1,000 mls @ 60 mls/hr IVCONT .[id number] [facility] Last Admin: 04/04/22 09:45 Dose: 60 mls/hr Ceftriaxone Sodium 1 gm/ (Sodium Chloride) 50 mls @ 100 mls/hr IV Q24H [facility] Last Infusion: 04/04/22 01:50 Dose: Infused Metronidazole (Flagyl) 500 mg in 100 mls @ 100 mls/hr IV Q8H [facility] Last Infusion: 04/04/22 03:36 Dose: Infused Ondansetron HCl (Ondansetron Hcl 4 Mg/2 Ml Vial) 4 mg IVPUSH Q8H PRN PRN Reason: Nausea and Vomiting Sodium Chloride (0.9 % Sodium Chloride Flush 3 Ml Syringe) 3 ml IVFLUSH QSHIFT [facility] Last Admin: 04/04/22 09:18 Dose: Not Given Tamsulosin HCl (Tamsulosin Hcl 0.4 Mg Capsule) 0.4 mg PO DAILY [facility] Last Admin: 04/04/22 09:45 Dose: Not Given Home Medications Medication Instructions Recorded Confirmed Last Taken Type acetaminophen 650 mg 1 tab PO Q8H PRN pain 04/03/22 04/03/22 Unknown History tablet,extended release (8 Hour Pain Reliever) aspirin 81 mg tablet,delayed 81 mg PO DAILY 04/03/22 04/03/22 Unknown History release atorvastatin 40 mg tablet 1 tab PO DAILY 04/03/22 04/03/22 Unknown History pantoprazole 40 mg tablet,delayed 1 tab PO DAILY 04/03/22 04/03/22 Unknown History release tamsulosin 0.4 mg capsule 1 cap PO DAILY 04/03/22 04/03/22 Unknown History Exam Exam Date and Time: April 04, 2022 104 Height,Weight and Vital Signs: Height 6 ft Weight 68 kg Last Vital Signs Temp 98.4 F 04/04/22 10:06 Pulse 68 04/04/22 10:06 Resp 18 04/04/22 10:06 BP 120/70 04/04/22 10:06 Pulse Ox 100 04/04/22 10:06 O2 Del Method 04/04/22 10:06 Pertinent Lab Results Pertinent Lab Results: Laboratory Tests 04/02/22 04/02/22 04/02/22 19:35 19:35 19:35 WBC 7.4 RBC 2.98 L Hgb 8.2 L Hct 26.3 L MCV 88.3 MCH 27.5 MCHC 31.2 RDW 17.0 H Plt Count 400 MPV 7.8 L Immature Gran % (Auto) 2.6 H Neut % (Auto) 58.6 Lymph % (Auto) 19.1 L [place] % (Auto) 17.5 H Eos % (Auto) 1.7 Baso % (Auto) 0.5 Lymph # (Auto) 1.4 [place] # (Auto) 1.3 H Eos # (Auto) 0.1 Baso # (Auto) 0.0 Abs Immat Gran (auto) 0.19 H Absolute Neuts (auto) 4.4 Absolute Nucleated RBC 0.000 Nucleated RBC % (auto) 0.0 Smear Tech's Comments PT INR Sodium 138 Potassium 4.3 Chloride 108 Carbon Dioxide 24 Anion Gap 10 L BUN 22 H Creatinine 0.90 Estim Creat Clear Calc 68.2 Estimated GFR > 60 Random Glucose 87 Lactic Acid 1.6 Calcium 7.9 L Total Bilirubin 0.3 AST 10 ALT 10 Alkaline Phosphatase 71 Lactate Dehydrogenase 135 Troponin I High Sens Total Protein 5.0 L Albumin 2.3 L Prealbumin Urine Color Urine Appearance Urine pH Ur Specific [place] Urine Protein Urine Glucose (UA) Urine Ketones Urine Blood Urine Nitrite Ur Leukocyte Esterase Stool Occult Blood Respiratory Panel [place] Adenovirus (Rapid PCR) B.pert (TEM-PCR) B.parapertussis DNA PCR C. pneumoniae DNA (PCR) Coronavirus OC43 (PCR) Coronavirus HKU1 (PCR) Coronavirus 229E (PCR) Coronavirus NL63 (PCR) Human Metapneumovir PCR Influenza A (RT-PCR) Influenza B (RT-PCR) M. pneumoniae (PCR) Parainfluenza 1 (PCR) Parainfluenza 2 (PCR) Parainfluenza 3 (PCR) Parainfluenza 4 (PCR) RSV (PCR) Entero/Rhino (PCR) SARS-CoV-2 RNA (RT-PCR) Blood Type Antibody Screen Crossmatch 04/02/22 04/02/22 04/02/22 19:35 22:14 23:34 WBC RBC Hgb Hct MCV MCH MCHC RDW Plt Count MPV Immature Gran % (Auto) Neut % (Auto) Lymph % (Auto) [place] % (Auto) Eos % (Auto) Baso % (Auto) Lymph # (Auto) [place] # (Auto) Eos # (Auto) Baso # (Auto) Abs Immat Gran (auto) Absolute Neuts (auto) Absolute Nucleated RBC Nucleated RBC % (auto) Smear Tech's Comments PT INR Sodium Potassium Chloride Carbon Dioxide Anion Gap BUN Creatinine Estim Creat Clear Calc Estimated GFR Random Glucose Lactic Acid Calcium Total Bilirubin AST ALT Alkaline Phosphatase Lactate Dehydrogenase Troponin I High Sens 3.4 Total Protein Albumin Prealbumin Urine Color Urine Appearance Urine pH Ur Specific [place] Urine Protein Urine Glucose (UA) Urine Ketones Urine Blood Urine Nitrite Ur Leukocyte Esterase Stool Occult Blood Respiratory Panel [place] See Note Adenovirus (Rapid PCR) Not Detected B.pert (TEM-PCR) Not Detected B.parapertussis DNA PCR Not Detected C. pneumoniae DNA (PCR) Not Detected Coronavirus OC43 (PCR) Not Detected Coronavirus HKU1 (PCR) Not Detected Coronavirus 229E (PCR) Not Detected Coronavirus NL63 (PCR) Not Detected Human Metapneumovir PCR Not Detected Influenza A (RT-PCR) Not Detected Influenza B (RT-PCR) Not Detected M. pneumoniae (PCR) Not Detected Parainfluenza 1 (PCR) Not Detected Parainfluenza 2 (PCR) Not Detected Parainfluenza 3 (PCR) Not Detected Parainfluenza 4 (PCR) Not Detected RSV (PCR) Not Detected Entero/Rhino (PCR) Not Detected SARS-CoV-2 RNA (RT-PCR) Not Detected Blood Type O Positive Antibody Screen NEGATIVE Crossmatch See Detail 04/02/22 04/03/22 04/03/22 23:34 00:26 06:04 WBC 4.6 L RBC 2.50 L Hgb 7.0 L* Hct 22.1 L MCV 88.4 MCH 28.0 MCHC 31.7 RDW 17.0 H Plt Count 367 MPV 7.9 L Immature Gran % (Auto) 4.3 H Neut % (Auto) 46.7 Lymph % (Auto) 23.3 [place] % (Auto) 20.9 H Eos % (Auto) 3.7 Baso % (Auto) 1.1 Lymph # (Auto) 1.1 L [place] # (Auto) 1.0 Eos # (Auto) 0.2 Baso # (Auto) 0.1 Abs Immat Gran (auto) 0.20 H Absolute Neuts (auto) 2.2 Absolute Nucleated RBC 0.000 Nucleated RBC % (auto) 0.0 Smear Tech's Comments VERIFIED PT 12.6 INR 1.1 Sodium Potassium Chloride Carbon Dioxide Anion Gap BUN Creatinine Estim Creat Clear Calc Estimated GFR Random Glucose Lactic Acid Calcium Total Bilirubin AST ALT Alkaline Phosphatase Lactate Dehydrogenase Troponin I High Sens Total Protein Albumin Prealbumin Urine Color Urine Appearance Urine pH Ur Specific [place] Urine Protein Urine Glucose (UA) Urine Ketones Urine Blood Urine Nitrite Ur Leukocyte Esterase Stool Occult Blood POSITIVE Respiratory Panel [place] Adenovirus (Rapid PCR) B.pert (TEM-PCR) B.parapertussis DNA PCR C. pneumoniae DNA (PCR) Coronavirus OC43 (PCR) Coronavirus HKU1 (PCR) Coronavirus 229E (PCR) Coronavirus NL63 (PCR) Human Metapneumovir PCR Influenza A (RT-PCR) Influenza B (RT-PCR) M. pneumoniae (PCR) Parainfluenza 1 (PCR) Parainfluenza 2 (PCR) Parainfluenza 3 (PCR) Parainfluenza 4 (PCR) RSV (PCR) Entero/Rhino (PCR) SARS-CoV-2 RNA (RT-PCR) Blood Type Antibody Screen Crossmatch 04/03/22 04/03/22 04/03/22 06:04 06:26 07:45 WBC RBC Hgb Hct MCV MCH MCHC RDW Plt Count MPV Immature Gran % (Auto) Neut % (Auto) Lymph % (Auto) [place] % (Auto) Eos % (Auto) Baso % (Auto) Lymph # (Auto) [place] # (Auto) Eos # (Auto) Baso # (Auto) Abs Immat Gran (auto) Absolute Neuts (auto) Absolute Nucleated RBC Nucleated RBC % (auto) Smear Tech's Comments PT INR Sodium 141 Potassium 3.9 Chloride 113 H Carbon Dioxide 22 Anion Gap 10 L BUN 17 H Creatinine 0.84 Estim Creat Clear Calc 73.0 Estimated GFR > 60 Random Glucose 75 Lactic Acid Calcium 7.5 L Total Bilirubin AST ALT Alkaline Phosphatase Lactate Dehydrogenase Troponin I High Sens Total Protein Albumin Prealbumin 5.0 L Urine Color Yellow Urine Appearance Clear Urine pH 7.0 Ur Specific [place] 1.015 Urine Protein Negative Urine Glucose (UA) Negative Urine Ketones Negative Urine Blood Negative Urine Nitrite Negative Ur Leukocyte Esterase Negative Stool Occult Blood Respiratory Panel [place] Adenovirus (Rapid PCR) B.pert (TEM-PCR) B.parapertussis DNA PCR C. pneumoniae DNA (PCR) Coronavirus OC43 (PCR) Coronavirus HKU1 (PCR) Coronavirus 229E (PCR) Coronavirus NL63 (PCR) Human Metapneumovir PCR Influenza A (RT-PCR) Influenza B (RT-PCR) M. pneumoniae (PCR) Parainfluenza 1 (PCR) Parainfluenza 2 (PCR) Parainfluenza 3 (PCR) Parainfluenza 4 (PCR) RSV (PCR) Entero/Rhino (PCR) SARS-CoV-2 RNA (RT-PCR) Blood Type Antibody Screen Crossmatch 04/03/22 14:16 WBC 5.5 RBC 2.93 L Hgb 8.4 L Hct 26.6 L D MCV 90.8 MCH 28.7 MCHC 31.6 RDW 17.2 H Plt Count 417 H MPV 7.9 L Immature Gran % (Auto) Neut % (Auto) Lymph % (Auto) [place] % (Auto) Eos % (Auto) Baso % (Auto) Lymph # (Auto) [place] # (Auto) Eos # (Auto) Baso # (Auto) Abs Immat Gran (auto) Absolute Neuts (auto) Absolute Nucleated RBC 0.000 Nucleated RBC % (auto) 0.0 Smear Tech's Comments PT INR Sodium Potassium Chloride Carbon Dioxide Anion Gap BUN Creatinine Estim Creat Clear Calc Estimated GFR Random Glucose Lactic Acid Calcium Total Bilirubin AST ALT Alkaline Phosphatase Lactate Dehydrogenase Troponin I High Sens Total Protein Albumin Prealbumin Urine Color Urine Appearance Urine pH Ur Specific [place] Urine Protein Urine Glucose (UA) Urine Ketones Urine Blood Urine Nitrite Ur Leukocyte Esterase Stool Occult Blood Respiratory Panel [place] Adenovirus (Rapid PCR) B.pert (TEM-PCR) B.parapertussis DNA PCR C. pneumoniae DNA (PCR) Coronavirus OC43 (PCR) Coronavirus HKU1 (PCR) Coronavirus 229E (PCR) Coronavirus NL63 (PCR) Human Metapneumovir PCR Influenza A (RT-PCR) Influenza B (RT-PCR) M. pneumoniae (PCR) Parainfluenza 1 (PCR) Parainfluenza 2 (PCR) Parainfluenza 3 (PCR) Parainfluenza 4 (PCR) RSV (PCR) Entero/Rhino (PCR) SARS-CoV-2 RNA (RT-PCR) Blood Type Antibody Screen Crossmatch Airway Mallampati Class: II TM Dist: >3cm Neck ROM: Limited Lungs: cta Assessment and Plan Assessment Anesthesia Assessment: Anesthesia Plan Discussed and Chart Reviewed Final Anesthetic Review Family History of Problems with Anesthesia: No History of Problems with Anesthesia: No NPO: Yes ASA Class: III and Emergency Final Preanesthetic Review: No Changes in Pt Med Stat, Meds/Allgs Chart Reviewed, Consent Obtained/Reviewed and Anes Risks/Benef Reviewed Patient Risk: Intermediate Procedure Risk: Low Anesthetic Plan Anesthetic Plan: MAC: Disposition: Standard PACU
--- NOTE | 2022-04-04 11:20 | PM.OP ---
Brief Operative Note Date of Service: 04/04/22 Pre-op diagnosis: rectal bleeding abnl ct Post-op diagnosis: same Procedure: colonoscopy Surgeon: Zachary Villafuerte Anesthesia: MAC Was an [employer] Work[employer] used for this Procedure?: No Estimated blood loss (mL): 5 Pathology: other Condition: stable Disposition: PACU
--- NOTE | 2022-04-04 11:22 | PM.EVENT ---
Event Note Date of Service: 04/04/22 Event Note: GI note dictated Stricture at 20 cm, dilated to 15 mm segmental colitis at 20 to 30 cm both likely ischemic bxs taken from sigmoid and stricture. rec advance diet f/u bx results. Time Spent With Patient Time: Total time managing care of this patient today ____ minutes.
--- NOTE | 2022-04-04 11:54 | OP_ITS ---
SURGEON: Zachary Villafuerte MD INDICATIONS: Rectal bleeding and abnormal CT scan of the sigmoid. PREOPERATIVE DIAGNOSIS: POSTOPERATIVE DIAGNOSIS: PROCEDURE PERFORMED: Colonoscopy to the cecum with biopsy and balloon dilation. ESTIMATED BLOOD LOSS: COMPLICATIONS: ANESTHESIA: Monitored anesthesia care. ASSISTANTS: SPECIMENS: DESCRIPTION OF PROCEDURE: Date: 04/04/22. History and physical performed. The risks and benefits of the procedure were explained to the patient's guardian and informed consent was obtained. The patient was placed in the left lateral decubitus position. A digital rectal exam was performed and was found to be normal. The Olympus pediatric video colonoscope was introduced into the rectum and advanced to the cecum. The cecum was identified by transillumination, palpation, and identification of ileocecal valve. Examination was performed. The scope was removed. He tolerated the procedure well and was taken to recovery area in stable condition. FINDINGS: At 20 cm from the anal verge was a stricture, which did not permit passage of the colonoscope. The stricture was dilated from 10 to 15 mm sequentially with balloon inflations for 60 seconds incrementally. The scope eventually passed through the stricture. The stricture had the appearance of an ischemic stricture without evidence of any obvious malignancy. Above this, there was segmental colitis from 20 to 30 cm with cobblestoning of the mucosa and dilation of the colon. This appeared consistent with chronic ischemia secondary to the stricture. Biopsies were obtained from the abnormal mucosa in the sigmoid and from the stricture. Stool was suctioned and sent for GI panel testing and C diff because of the cobblestoning. The remainder of the colonic mucosa appeared within normal limits. There was no prep given. Therefore, the examination was not adequate for detection of small polyps. Liquid and semi-formed stools washed and suctioned as best possible. Retroflexed examination was normal. IMPRESSION: 1. Segmental colitis. 2. Sigmoid stricture. RECOMMENDATION: 1. Follow up the biopsy results. 2. Advance diet. 3. Screening colonoscopy not recommended based on age. MD TRACY Pike/LIZZY / [id number] MTDD
[2022-04-04 12:53] LABS: CDiff Gene PCR NEGATIVE (Negative)
--- NOTE | 2022-04-04 14:09 | PM.PNGS ---
Subjective Subjective Date of Service: 04/04/22 Patient reports: no new complaints Interval history: The patient remains confused. He was sleeping post endoscopy and readily awoke. He denies abdominal pain but over heard voices in the [place] and asked me who was in his house. He was unable to identify that he is in the hospital, he could not recall the month, year or season. He was unable to name friends, contacts or next of kin. Physical Exam Vital Signs: Vital Signs: Last Vital Signs Temp 98.2 F 04/04/22 12:51 Pulse 71 04/04/22 13:42 Resp 16 04/04/22 13:42 BP 119/75 04/04/22 13:42 Pulse Ox 100 04/04/22 13:42 O2 Del Method 04/04/22 13:42 BMI result Body Mass Index 20.3 Patient's abdominal exam is soft with no significant tenderness and no peritoneal sign to percussion is present Objective Data Active Medications Acetaminophen (Acetaminophen 325 Mg Tablet) 650 mg PO Q6H PRN PRN Reason: Pain, Mild (Pain Scale 1-3) Famotidine (Famotidine/Pf 20 Mg/2 Ml Vial) 20 mg IVPUSH DAILY [facility] Last Admin: 04/04/22 09:45 Dose: Not Given Documented By: ANDIE Non-Admin Reason: NPO Lactated Ringer's (Lr) 1,000 mls @ 60 mls/hr IVCONT .[id number] [facility] Last Admin: 04/04/22 13:51 Dose: 60 mls/hr Documented By: ALEX Ceftriaxone Sodium 1 gm/ (Sodium Chloride) 50 mls @ 100 mls/hr IV Q24H [facility] Last Infusion: 04/04/22 01:50 Dose: 0 mls/hr Documented By: TIFFANI Metronidazole (Flagyl) 500 mg in 100 mls @ 100 mls/hr IV Q8H [facility] Last Admin: 04/04/22 13:31 Dose: Not Given Documented By: ALEX Non-Admin Reason: Off Unit: Surgery Ondansetron HCl (Ondansetron Hcl 4 Mg/2 Ml Vial) 4 mg IVPUSH Q8H PRN PRN Reason: Nausea and Vomiting Sodium Chloride (0.9 % Sodium Chloride Flush 3 Ml Syringe) 3 ml IVFLUSH QSHIFT [facility] Last Admin: 04/04/22 13:51 Dose: 3 ml Documented By: ALEX Tamsulosin HCl (Tamsulosin Hcl 0.4 Mg Capsule) 0.4 mg PO DAILY [facility] Last Admin: 04/04/22 09:45 Dose: Not Given Documented By: ANDIE Non-Admin Reason: NPO Labs CBC & Chem 7: 04/03/22 14:16 04/03/22 06:04 Labs: Laboratory Results - last 24 hr 04/02/22 04/03/22 04/04/22 22:14 14:16 11:01 MCV 90.8 MCH 28.7 MCHC 31.6 RDW 17.2 H Plt Count 417 H MPV 7.9 L Absolute Nucleated RBC 0.000 Nucleated RBC % (auto) 0.0 C. difficile Tox B Gene NEGATIVE Crossmatch See Detail pre-albumin is 5. Patient has a significant operative risk based on protein malnutrition and comorbidities. Microbiology Microbiology Results: Microbiology 04/02/22 19:27 Blood Culture - Preliminary Blood - Venous No growth after 24 hours. 04/02/22 19:02 Blood Culture - Preliminary Blood - Venous No growth after 24 hours. Procedures Date of Service Date of Service: 04/04/22 Progress Note: A&P Assessment and plan (1) Sigmoid stricture: Status: Acute (2) Frailty syndrome in geriatric patient: Status: Acute (3) Protein calorie malnutrition: Status: Acute (4) Cellulitis: Status: Acute (5) Colitis: Status: Acute (6) Anemia: Status: Acute (7) Dementia: Status: Acute Plan Endoscopy note reviewed. Stricture and colitis noted by Dr. Villafuerte. Biopsies pending and balloon dilation performed. Pre-albumin is 5.0. Patient's protein malnutrition demonstrates significant increased risk for postoperative complications including infection and dehiscence, consequently, nutritional optimization is recommended. Surgically, can resume clear liquids and would recommend daily MiraLax. At the end of our conversation, the patient remained unoriented to place and time. He would be helpful to have a contact regarding DPOAH and a definitive treatment plan given the patient's failure to thrive, frailty and protein malnutrition in the setting of a probable ischemic stricture of the sigmoid. Time Spent With Patient Time: Total time managing care of this patient today ____ minutes. Quality Stroke Does the patient have a stroke diagnosis?: No VTE Prior VTE?: No VTE Risk Level:: Medical - moderate - high VTE Device Contraindication: N/A - Device Ordered VTE Drug Contraindication: Treatment Not Indicated
--- NOTE | 2022-04-04 15:02 | HO.PM.IMPN ---
Subjective Subjective Date of Service: 04/05/22 Interval History: Patient unable to provide meaningful history with underlying dementia, patient return from colonoscopy and was noted to have a stricture at 20 cm that was dilated patient also noted to have segmental colitis at 20- 30 cm both likely ischemic biopsies were taken, patient denies abdominal pain no nausea, no vomiting, complaining of itching left leg, denies pain. Review of Systems Review of Systems: Yes Unobtainable due to mental status Physical Exam Vital Signs: Vital Signs: Last Vital Signs Temp 98.2 F 04/04/22 12:51 Pulse 71 04/04/22 13:42 Resp 16 04/04/22 13:42 BP 119/75 04/04/22 13:42 Pulse Ox 100 04/04/22 13:42 O2 Del Method 04/04/22 13:42 BMI result Body Mass Index 20.3 Const: Other: General awake alert, in no acute distress. Neck is supple no JVD. CVS regular rate rhythm, Respiratory lungs clear to auscultation, no respiratory distress, no wheeze, no rhonchi. Gastrointestinal abdomen soft, nontender, bowel sounds audible, no guarding , no rigidity. Extremities mild bilateral lower extremity edema, hyperemia and warmth, edema improved since yesterday, nontender to palpation, mild dryness . Neuro nonfocal , moving all 4 extremity speech clear. Skin no rash Psych poor insight Objective Data Active Medications Acetaminophen (Acetaminophen 325 Mg Tablet) 650 mg PO Q6H PRN PRN Reason: Pain, Mild (Pain Scale 1-3) Famotidine (Famotidine/Pf 20 Mg/2 Ml Vial) 20 mg IVPUSH DAILY [facility] Last Admin: 04/04/22 09:45 Dose: Not Given Documented By: ANDIE Non-Admin Reason: NPO Ceftriaxone Sodium 1 gm/ (Sodium Chloride) 50 mls @ 100 mls/hr IV Q24H [facility] Last Infusion: 04/04/22 01:50 Dose: 0 mls/hr Documented By: TIFFANI Metronidazole (Flagyl) 500 mg in 100 mls @ 100 mls/hr IV Q8H [facility] Last Admin: 04/04/22 13:31 Dose: Not Given Documented By: ALEX Non-Admin Reason: Off Unit: Surgery Ondansetron HCl (Ondansetron Hcl 4 Mg/2 Ml Vial) 4 mg IVPUSH Q8H PRN PRN Reason: Nausea and Vomiting Polyethylene Glycol (Polyethylene Glycol 3350 17 Gm Powd.Pack) 17 gm PO DAILY [facility] Sodium Chloride (0.9 % Sodium Chloride Flush 3 Ml Syringe) 3 ml IVFLUSH QSHIFT [facility] Last Admin: 04/04/22 13:51 Dose: 3 ml Documented By: ALEX Tamsulosin HCl (Tamsulosin Hcl 0.4 Mg Capsule) 0.4 mg PO DAILY [facility] Last Admin: 04/04/22 09:45 Dose: Not Given Documented By: ANDIE Non-Admin Reason: NPO Labs CBC & Chem 7: 04/03/22 14:16 04/03/22 06:04 Labs: Laboratory Results - last 24 hr 04/02/22 04/04/22 22:14 11:01 C. difficile Tox B Gene NEGATIVE Crossmatch See Detail Microbiology Microbiology Results: Microbiology 04/02/22 19:27 Blood Culture - Preliminary Blood - Venous No growth after 24 hours. 04/02/22 19:02 Blood Culture - Preliminary Blood - Venous No growth after 24 hours. Assessment and Plan (1) Cellulitis: Status: Acute (2) Colitis: Status: Acute (3) Anemia: Status: Acute Plan 76-year-old gentleman with past medical history of hyperlipidemia, status post aorto bifemorl bypass graft for AAA ,lives alone at home family checks on him daily was brought in to [facility] due to bilateral lower extremity swelling , pain and diarrhea while in the emergency room patient noted to have maroon bloody diarrhea blood pressure was 101/44 , fever of 101, oxygenation was 76 with poor wave form and no respiratory distress Acute colitis Differential diagnosis ischemic colitis/infectious Abnormal CT scan of abdomen suggestive of possible colitis with marked abnormal loop of sigmoid colon with surrounding inflammatory changes seen by General surgery they recommend GI consultation for sigmoidoscopy to rule out volvulos Patient seen by Dr. Villafuerte and underwent colonoscopy that showed stricture at 20 cm that was dilated to 15 mm, there was also segmental colitis likely ischemic biopsies were taken Patient started on regular diet Bilateral lower extremity cellulitis improving continue IV antibiotics, keep leg elevated, blood cultures x2 no growth Acute on chronic normocytic anemia likely due to ischemic colitis with 1 episode of maroon stool in ER Status post 1 unit of packed RBC hematocrit improved to 26.6 no recurrent bleeding Follow CBC and clinical course. Hold aspirin Unspecified dementia Hyperlipidemia resume statins DVT prophylaxis compression boot Code status full code In my clinical judgment patient need continued inpatient hospitalization due to anemia, colitis and bilateral lower extremity cellulitis. Time Spent With Patient Time: Total time managing care of this patient today ____ minutes. Quality Stroke Does the patient have a stroke diagnosis?: No VTE Prior VTE?: No VTE Risk Level:: Medical - moderate - high VTE Device Contraindication: N/A - Device Ordered VTE Drug Contraindication: Treatment Not Indicated
[2022-04-04 15:18] LABS: Adenovirus F 40/41 Not Detected (Not Detect.); Astrovirus Not Detected (Not Detect.); Campylobacter Not Detected (Not Detect.); Cryptosporidium Not Detected (Not Detect.); Cyclospora cayetanensis Not Detected (Not Detect.); E. coli EAEC Not Detected (Not Detect.); E. coli EPEC Not Detected (Not Detect.); E. coli ETEC Not Detected (Not Detect.); E. coli STEC Not Detected (Not Detect.); Entamoeba histolytica Not Detected (Not Detect.); Giardia lamblia Not Detected (Not Detect.); Norovirus GI/GII Not Detected (Not Detect.); Plesiomonas shigelloides Not Detected (Not Detect.); Rotavirus A Not Detected (Not Detect.); Salmonella Not Detected (Not Detect.); Sapovirus Not Detected (Not Detect.); Shigella sp./EIEC Not Detected (Not Detect.); Vibrio Not Detected (Not Detect.); Vibrio Cholerae Not Detected (Not Detect.); Yersinia enterocolitica Not Detected (Not Detect.)
[2022-04-04] MEDS: Acetaminophen 325 MG TABLET 650 MG PO (17:14)
[2022-04-05] VITALS (7 sets, daily range): BP systolic 106–136; BP diastolic 66–81; PULSE 67–83; RESP 16–18; TEMP 36.1–36.8; O2SAT 97–100; BMI 20.3
[2022-04-05] MEDS: cefTRIAXone sodium 1 GM in 0.9 % Sodium Chloride 50 ML IV (02:09)
[2022-04-05] MEDS: metroNIDAZOLE/NS 500 MG/100 ML PIGGYBACK 100 MG IV ×3 (02:42→18:03)
[2022-04-05] MEDS: Famotidine/PF 20 MG/2 ML VIAL IVPUSH (07:58)
[2022-04-05] MEDS: polyethylene glycoL 3350 17 GM POWD.PACK PO (07:58)
[2022-04-05] MEDS: Tamsulosin HCL 0.4 MG CAPSULE PO (07:58)
[2022-04-05] MEDS: 0.9 % Sodium Chloride Flush 3 ML SYRINGE IVFLUSH ×3 (07:58→19:29)
--- NOTE | 2022-04-05 10:35 | HO.POSTANES ---
Post Anesthesia Evaluation Post Anesthesia Evaluation Vital Signs: Vital Signs Temp Pulse Resp BP Pulse Ox O2 Del Method 04/05/22 07:53 98.1 F 83 18 136/81 99 Room Air 04/05/22 04:00 97.1 F 80 18 106/66 97 Room Air 04/04/22 23:41 97.4 F 78 18 119/75 99 Room Air Anesthesia: Monitored Mental Status: Awake Pain Control: Satisfactory Nausea/Vomiting: None Hydration: Adequate Anesthesia-Related Issues: No Anes. Related Issues
--- NOTE | 2022-04-05 11:52 | HO.PM.IMPN ---
Subjective Subjective Date of Service: 04/06/22 Interval History: patient offers no acute complaints, awake alert tolerating diet with no nausea no vomiting or abdominal pain, no acute overnight events, denies fever chills, no shortness of breath, no chest pain finger oximetry 99% on room air. 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 Neck is supple no JVD. CVS? regular rate rhythm, Respiratory lungs clear to auscultation, no respiratory distress, no wheeze, no rhonchi. Gastrointestinal abdomen soft, nontender, bowel sounds audible, no guarding , no rigidity. Extremities bilateral lower extremity edema improving less hyperemia and warmth, nontender to palpation, mild dryness . Neuro nonfocal , moving all 4 extremity speech clear. Skin no rash Psych poor insight Objective Data Active Medications Acetaminophen (Acetaminophen 325 Mg Tablet) 650 mg PO Q6H PRN PRN Reason: Pain, Mild (Pain Scale 1-3) Last Admin: 04/04/22 17:14 Dose: 650 mg Documented By: ALEX Famotidine (Famotidine/Pf 20 Mg/2 Ml Vial) 20 mg IVPUSH DAILY [facility] Last Admin: 04/05/22 07:58 Dose: 20 mg Documented By: ALEX Ceftriaxone Sodium 1 gm/ (Sodium Chloride) 50 mls @ 100 mls/hr IV Q24H [facility] Last Infusion: 04/05/22 02:45 Dose: 0 mls/hr Documented By: SIVA Metronidazole (Flagyl) 500 mg in 100 mls @ 100 mls/hr IV Q8H [facility] Last Infusion: 04/05/22 11:18 Dose: 0 mls/hr Documented By: ALEX Ondansetron HCl (Ondansetron Hcl 4 Mg/2 Ml Vial) 4 mg IVPUSH Q8H PRN PRN Reason: Nausea and Vomiting Polyethylene Glycol (Polyethylene Glycol 3350 17 Gm Powd.Pack) 17 gm PO DAILY [facility] Last Admin: 04/05/22 07:58 Dose: 17 gm Documented By: ALEX Sodium Chloride (0.9 % Sodium Chloride Flush 3 Ml Syringe) 3 ml IVFLUSH QSHIFT [facility] Last Admin: 04/05/22 07:58 Dose: 3 ml Documented By: ALEX Tamsulosin HCl (Tamsulosin Hcl 0.4 Mg Capsule) 0.4 mg PO DAILY [facility] Last Admin: 04/05/22 07:58 Dose: 0.4 mg Documented By: ALEX Labs CBC & Chem 7: 04/06/22 06:12 04/03/22 06:04 Labs: Laboratory Results - last 24 hr 04/04/22 04/04/22 11:01 Unknown Stl C. cayetanensis PCR Not Detected Stool Rotavirus A PCR Not Detected Stl Adenov F 40/41 PCR Not Detected Stool Astrovirus (PCR) Not Detected Stool Campylobacter PCR Not Detected Stool Cryptosporidium PCR Not Detected Stl Sh Tox Pr E STEC PCR Not Detected Stool E coli O157 PCR Not applicable Stl Enterotoxigenic E PCR Not Detected Stool EPEC (PCR) Not Detected Stool EAEC (PCR) Not Detected Stl E. histolytica PCR Not Detected Stool Giardia Lamblia PCR Not Detected Stl P. shigelloides PCR Not Detected Stool Salmonella PCR Not Detected Stool Sapovirus (PCR) Not Detected Stl Shigella/EIEC PCR Not Detected St Y.enterocolitica PCR Not Detected Stool Vibrio (PCR) Not Detected Stl Vibrio cholerae PCR Not Detected Stl Norovirus GI/GII PCR Not Detected C. difficile Tox B Gene NEGATIVE Microbiology Microbiology Results: Microbiology 04/02/22 19:27 Blood Culture - Preliminary Blood - Venous No growth after 48 hours. 04/02/22 19:02 Blood Culture - Preliminary Blood - Venous No growth after 48 hours. Assessment and Plan (1) Positive occult stool blood test: Status: Acute (2) Normocytic anemia: Status: Acute (3) Dementia: Status: Acute (4) Protein calorie malnutrition: Status: Acute (5) Sigmoid stricture: Status: Acute (6) Anemia: Status: Acute Plan 76-year-old gentleman with past medical history of hyperlipidemia, status post aorto bifemorl bypass graft for AAA ,lives alone at home family checks on him daily was brought in to [facility] due to bilateral lower extremity swelling , pain and diarrhea while in the emergency room patient noted to have maroon bloody diarrhea blood pressure was 101/44 , fever of 101, oxygenation was 76 with poor wave form and no respiratory distress Acute colitis Differential diagnosis ischemic colitis/infectious Abnormal CT scan of abdomen suggestive of possible colitis with marked abnormal loop of sigmoid colon with surrounding inflammatory changes seen by General surgery they recommend GI consultation for sigmoidoscopy to rule out volvulos Patient seen by Dr. Villafuerte and underwent colonoscopy that showed stricture at 20 cm that was dilated to 15 mm, there was also segmental colitis likely ischemic biopsies were taken Patient tolerating regular diet, no nausea no vomiting no abdominal pain, no recurrent fevers, due GI pathology pending on IV Flagyl and ceftriaxone day 3 Bilateral lower extremity cellulitis improving continue IV antibiotics, keep leg elevated, blood cultures x2 no growth, lower extremity swelling likely due to hypoalbuminemia, will transition to by mouth antibiotics Acute on chronic normocytic anemia likely due to ischemic colitis with 1 episode of maroon stool in ER Status post 1 unit of packed RBC hematocrit improved to 26.6 no recurrent bleeding Follow CBC and clinical course.? Hold aspirin Unspecified dementia no behavioral issues spoke with patient's daughter in law Elisa newby [phone] and informed her regarding patient's low albumin and other medical issues patient lives alone at home, family member was its daily patient noted to have significantly low albumin nutrition consult obtained, patient with significant dementia and weakness will also obtain PT eval for safe discharge Hyperlipidemia on Lipitor 40 mg daily will check lipid profile protein calorie malnutrition, no severe malnutrition noted continue Ensure can t.i.d. BPH continue Flomax DVT prophylaxis compression boot Code status full code In my clinical judgment patient need continued inpatient hospitalization due to anemia, colitis and bilateral lower extremity cellulitis. Time Spent With Patient Time: Total time managing care of this patient today ____ minutes. Quality Stroke Does the patient have a stroke diagnosis?: No VTE Prior VTE?: No VTE Risk Level:: Medical - moderate - high VTE Device Contraindication: N/A - Device Ordered VTE Drug Contraindication: Treatment Not Indicated
--- NOTE | 2022-04-05 12:13 | MHC.CLN ---
NUTRITION CONSULT FOR MALNUTRITION, FRAILTY AND LOW ALBUMIN, PREALBUMIN =5, VERY LOW. PATIENT CONFUSED AT TIME OF VISIT AND UNABLE TO OBTAIN ANY INFORMATION ABOUT FOOD/EATING PATTERN. ADDING ENSURE TID TO PROVIDE ADDITIONAL 1050 KCALS, 60 G PROTEIN. MONITOR CLOSELY FOR PO INTAKE. SEE NUTRITION ASSESSMENT 04/05/22.
--- NOTE | 2022-04-05 15:04 | PM.PNGS ---
Subjective Subjective Date of Service: 04/05/22 Interval history: Patient appears to be at his baseline. He does not recall meeting me yesterday or the day before. He does not realize he is in the hospital. He denies abdominal pain and is a poor historian regarding bowel function and flatus. Per nursing, the patient is tolerating his diet, passing gas and has had a bowel movement. He is not complaining of any chest pain or shortness of breath or abdominal pain to the nursing staff. Physical Exam Vital Signs: Vital Signs: Last Vital Signs Temp 98.3 F 04/05/22 11:43 Pulse 70 04/05/22 13:39 Resp 17 04/05/22 11:43 BP 121/81 04/05/22 13:39 Pulse Ox 99 04/05/22 13:39 O2 Del Method 04/05/22 11:43 BMI result Body Mass Index 20.3 On exam, he is nontoxic His abdomen is soft with no peritoneal sign, there is no discrete tenderness and no hernias are appreciated Objective Data Active Medications Acetaminophen (Acetaminophen 325 Mg Tablet) 650 mg PO Q6H PRN PRN Reason: Pain, Mild (Pain Scale 1-3) Last Admin: 04/04/22 17:14 Dose: 650 mg Documented By: ALEX Famotidine (Famotidine/Pf 20 Mg/2 Ml Vial) 20 mg IVPUSH DAILY [facility] Last Admin: 04/05/22 07:58 Dose: 20 mg Documented By: ALEX Ceftriaxone Sodium 1 gm/ (Sodium Chloride) 50 mls @ 100 mls/hr IV Q24H [facility] Last Infusion: 04/05/22 02:45 Dose: 0 mls/hr Documented By: SIVA Metronidazole (Flagyl) 500 mg in 100 mls @ 100 mls/hr IV Q8H [facility] Last Infusion: 04/05/22 11:18 Dose: 0 mls/hr Documented By: ALEX Ondansetron HCl (Ondansetron Hcl 4 Mg/2 Ml Vial) 4 mg IVPUSH Q8H PRN PRN Reason: Nausea and Vomiting Polyethylene Glycol (Polyethylene Glycol 3350 17 Gm Powd.Pack) 17 gm PO DAILY [facility] Last Admin: 04/05/22 07:58 Dose: 17 gm Documented By: ALEX Sodium Chloride (0.9 % Sodium Chloride Flush 3 Ml Syringe) 3 ml IVFLUSH QSHIFT [facility] Last Admin: 04/05/22 07:58 Dose: 3 ml Documented By: ALEX Tamsulosin HCl (Tamsulosin Hcl 0.4 Mg Capsule) 0.4 mg PO DAILY [facility] Last Admin: 04/05/22 07:58 Dose: 0.4 mg Documented By: ALEX Labs CBC & Chem 7: 04/03/22 14:16 04/03/22 06:04 Labs: Laboratory Results - last 24 hr 04/04/22 Unknown Stl C. cayetanensis PCR Not Detected Stool Rotavirus A PCR Not Detected Stl Adenov F 40/41 PCR Not Detected Stool Astrovirus (PCR) Not Detected Stool Campylobacter PCR Not Detected Stool Cryptosporidium PCR Not Detected Stl Sh Tox Pr E STEC PCR Not Detected Stool E coli O157 PCR Not applicable Stl Enterotoxigenic E PCR Not Detected Stool EPEC (PCR) Not Detected Stool EAEC (PCR) Not Detected Stl E. histolytica PCR Not Detected Stool Giardia Lamblia PCR Not Detected Stl P. shigelloides PCR Not Detected Stool Salmonella PCR Not Detected Stool Sapovirus (PCR) Not Detected Stl Shigella/EIEC PCR Not Detected St Y.enterocolitica PCR Not Detected Stool Vibrio (PCR) Not Detected Stl Vibrio cholerae PCR Not Detected Stl Norovirus GI/GII PCR Not Detected Microbiology Microbiology Results: Microbiology 04/02/22 19:27 Blood Culture - Preliminary Blood - Venous No growth after 48 hours. 04/02/22 19:02 Blood Culture - Preliminary Blood - Venous No growth after 48 hours. Procedures Date of Service Date of Service: 04/05/22 Progress Note: A&P Assessment and plan (1) Positive occult stool blood test: Status: Acute (2) Normocytic anemia: Status: Acute (3) Dementia: Status: Acute (4) Protein calorie malnutrition: Status: Acute (5) Sigmoid stricture: Status: Acute (6) Anemia: Status: Acute (7) Frailty syndrome in geriatric patient: Status: Acute (8) Cellulitis: Status: Acute Plan Per nursing, the patient is tolerating his diet and having bowel movements. His patient is having no abdominal complaints and appears surgically stable for discharge once he is medically cleared and stable. Please call the on-call surgeon if issues arise on the weekend in please call me 04/08 if there are surgical questions. Time Spent With Patient Time: Total time managing care of this patient today ____ minutes. Quality Stroke Does the patient have a stroke diagnosis?: No VTE Prior VTE?: No VTE Risk Level:: Medical - moderate - high VTE Device Contraindication: N/A - Device Ordered VTE Drug Contraindication: Treatment Not Indicated
--- NOTE | 2022-04-05 15:25 | MHC.CM.PN ---
Addendum entered by Samanta Jasso RN 04/05/22 15:51: [facility] OFFERING A BED TOMORROW AM AND PENDING NEW NEG CVID PCR, HOSPITALIST AND W/E CM AWARE. Original Note: PT RECOMMENDING STR, CM RECEIVED CALL BACK FROM PT'S HCP ADAMA WHO REPORTS PREFERRED SNF IS [facility], [facility] IS REVIEWING AND WILL FOLLOW UP W/CM.
[2022-04-05 17:21] LABS: Influenza A PCR NEGATIVE (Negative); Influenza B PCR NEGATIVE (Negative); Resp Syncy Virus RNA Qual PCR NEGATIVE (Negative); SARS COV2 PCR INHOUSE NEGATIVE (Negative)
[2022-04-05] MEDS: traZODone HCL 50 MG TABLET PO (23:42)
[2022-04-06] MEDS: cefTRIAXone sodium 1 GM in 0.9 % Sodium Chloride 50 ML IV (00:37)
[2022-04-06] MEDS: metroNIDAZOLE/NS 500 MG/100 ML PIGGYBACK 100 MG IV (01:42)
[2022-04-06] MEDS: Haloperidol Lactate 5 MG/ML VIAL IVPUSH (01:51)
[2022-04-06 03:32] VITALS: BP 114/66; PULSE 76; RESP 16; TEMP 36.2; O2SAT 98
--- NOTE | 2022-04-06 04:30 | PC.NURSE ---
Pt seen at start of the shift confused, oriented to self only, very hard to comprehend, calling out, frequently redirected, and needs met. Pt became more and more restless and irritable, very hard to redirect as the night went, impulsive getting out of bed, Dr. Mckeon was made aware, Trazodone 50 mg po given with no effect, pt cont to be impulsive and unredirectible, Dr. Mckeon was made aware, Haldol 5 mg IV given, pt only slept for 30 mins, still confused, could be resistive to care, and impulsive, unredirectible, closely monitored pt, bed alarm on.
[2022-04-06 06:26] LABS: Mean Corpuscular HGB Conc 30.8 g/dl (31.0-36.0); Mean Corpuscular Volume 90.9 fL (80.0-98.0); Platelet Count 359 X10*3/uL (160-400); Red Blood Count 2.86 X10*6/uL (4.60-5.80); Red Cell Distribution Width 17.6 % (11.0-16.0); White Blood Count 7.3 X10*3/uL (4.8-10.8)
[2022-04-06 07:49] VITALS: BP 113/70; PULSE 75; RESP 18; TEMP 36.9; O2SAT 100
[2022-04-06] MEDS: 0.9 % Sodium Chloride Flush 3 ML SYRINGE IVFLUSH (08:03)
[2022-04-06] MEDS: Tamsulosin HCL 0.4 MG CAPSULE PO (08:03)
[2022-04-06] MEDS: polyethylene glycoL 3350 17 GM POWD.PACK PO (08:10)
[2022-04-06 08:23] LABS: Cholesterol 87 mg/dL; HDL Cholesterol 46 mg/dL; LDL Cholesterol Calculated 35 mg/dl; Triglycerides 31 mg/dL
--- NOTE | 2022-04-06 09:10 | PC.NURSE ---
Upon assessment of pt. pt IV access was leaking and mcfp out. IV removed. Dr. Pradhan at bedside and made aware of no IV access. Per Dr. Pradhan pt will be discharged today, IV medications can be changed to PO and IV can remain out.
[2022-04-06] MEDS: metroNIDAZOLE 500 MG TABLET PO (09:59)
[2022-04-06] MEDS: Doxycycline Monohydrate 100 MG CAPSULE PO (09:59)
--- NOTE | 2022-04-06 11:29 | P.DS_ITS ---
DS: Providers Provider Date of Service: 04/06/22 Date of admission: 04/03/22 01:11 Primary care physician: Unknown Physician Consults: 04/02/22 22:34 Consult to General Surgery Stat Consulting Provider: Tony Forman Reason for consultation: Dickson Has provider been notified: Yes 04/03/22 01:13 Consult to Gastroenterology Routine Consulting Provider: Gennaro Oscar Reason for consultation: colitis,gi bleed Has provider been notified: No 04/03/22 11:15 Consult to Gastroenterology Routine Consulting Provider: Gennaro Oscar Reason for consultation: abnormal ct abd r/o volvulos Has provider been notified: No DS: Diagnosis Discharge Diagnosis (1) Positive occult stool blood test: Status: Acute (2) Normocytic anemia: Status: Acute (3) Dementia: Status: Acute (4) Protein calorie malnutrition: Status: Acute (5) Sigmoid stricture: Status: Acute (6) Anemia: Status: Acute DS: Summary Hospital Course Hospital Course: history of presenting illness Date of Service: 04/03/22 Chief Complaint: leg redness ?76-year-old male who was a very poor historian due to history of dementia presents to the hospital from home, it appears that daughter versus [id number] was visiting him and called EMS for bilateral leg swelling redness and warm, patient himself is denying any acute complaint, unable to reach the patient's? proxy contact number on file? and unable to identify the female that called EMS. ? On arrival to the ED patient was found to have a fever of 101, blood pressure 101/44, Labs are significant for? WBC count of 4.6, hemoglobin of 8.2, hematocrit 26.3, INR of 1.1, urine negative Occult blood positive, C diff negative abdomen pelvic CT shows abnormal loop of sigmoid colon with surrounding inflammatory change worsen for ischemic versus colitis, no free air, pneumatosis or free fluid. Patient started on IV antih antibiotics and will be admitted for further management ?unable to obtain much medical history including past medical, family, social or surgical history hospital course 76-year-old gentleman with past medical history of hyperlipidemia, status post aorto bifemorl bypass graft for AAA ,lives alone at home family checks on him daily was brought in to [facility] due to bilateral lower extremity swelling , pain and diarrhea while in the emergency room patient noted to have maroon bloody diarrhea blood pressure was 101/44 , fever of 101, oxygenation was 76 with poor wave form and no respiratory distress Acute colitis Abnormal CT scan of abdomen suggestive of possible colitis with marked abnormal loop of sigmoid colon with surrounding inflammatory changes suggestive of ischemic colitis, patient seen by Dr. Forman from General surgery he recommend GI consultation for sigmoidoscopy to rule out volvulos,Patient seen by Dr. Villafuerte and underwent colonoscopy that showed stricture at 20 cm that was dilated to 15 mm, there was also segmental colitis likely ischemic biopsies taken that showed fragments of granulation tissue lined by benign colonic epithelium, biopsy from stricture showed small fragment of inflamed colonic mucosa and fragments of granulation tissue patient was treated with IV Flagyl and ceftriaxone patient had no nausea no vomiting or abdominal pain since patient is tolerating diet he is being discharged home on 3 more days of by mouth antibiotics Bilateral lower extremity cellulitis improving at edema likely due to low albumin blood cultures x2 are negative swelling and redness is significantly improved patient is being discharged home on by mouth doxycycline for 3 more days Acute on chronic normocytic anemia likely due to ischemic colitis with 1 episode of maroon stool in ER, Status post 1 unit of packed RBC hematocrit improved to 26.6, no recurrent bleeding noted. Unspecified dementia no behavioral issues confused baseline as per family confusion gets worse when he is outside his home. Hyperlipidemia? on Lipitor 40 mg daily , due to LDL of 35 will discontinue Lipitor protein calorie malnutrition, no severe malnutrition noted continue Ensure can t.i.d. BPH continue Flomax Time Spent with Patient Time attestation: Total time managing care of this patient today ____ minutes. Discharge coordination time: Greater than 30 minutes Quality: Safe Use of Opioids Does Pt have an Active Cancer Diagnosis on the Problem List?: No Quality: Stroke Does the patient have a stroke diagnosis?: No Physical Exam Vital Signs: Vital Signs: Last Vital Signs Temp 98.5 F 04/06/22 07:49 Pulse 75 04/06/22 07:49 Resp 18 04/06/22 07:49 BP 113/70 04/06/22 07:49 Pulse Ox 100 04/06/22 07:49 O2 Del Method 04/06/22 08:15 BMI result Body Mass Index 20.3 Const: Other: General awake aler t, in no acute dis tress.? Neck is gold pple no JVD. CVS? regular rate rhyth m, Respiratory christopher gs clear to auscul tation, no respira tory distress, no wheeze, no rhonchi . Gastrointestinal abdomen soft, non tender, bowel soun ds audible, no gua rding , no rigidit y. Extremities mil d bilateral lower extremity edema, redness improved n o pain. Neuro nonf ocal , moving all 4 extremity, speec h clear. Skin no r mary Psych poor ins ight DS: Data Data Completed and Pending Completed studies during hospitalization [Text1]: Pending at discharge 04/04/22 11:06 Surgical [PTH] Routine Labs on day of discharge: Laboratory Results - last 24 hr 04/05/22 04/06/22 04/06/22 16:22 06:12 06:12 WBC 7.3 RBC 2.86 L Hgb 8.0 L Hct 26.0 L MCV 90.9 MCH 28.0 MCHC 30.8 L RDW 17.6 H Plt Count 359 MPV 8.0 L Absolute Nucleated RBC 0.000 Nucleated RBC % (auto) 0.0 Triglycerides 31 Cholesterol 87 LDL Cholesterol, Calc 35 HDL Cholesterol 46 Influenza Type A (PCR) NEGATIVE Influenza Type B (PCR) NEGATIVE RSV RNA Qual (PCR) NEGATIVE SARS-CoV-2 RNA (RT-PCR) NEGATIVE Preliminary micro results at discharge 04/02/22 19:27 Blood Culture - Preliminary Blood - Venous No growth after 48 hours. 04/02/22 19:02 Blood Culture - Preliminary Blood - Venous No growth after 48 hours. Discharge Plan Discharge Anticipated Discharge Date/Time: 04/06/22 11:19 Patient Disposition: er [facility] Discharge Diagnosis: acute colitis bilateral lower extremity cellulitis acute on chronic normocytic anemia unspecified dementia protein calorie malnutrition Referrals: Physician,Unknown J [Primary Care Provider] - 1 Week Discharge Medications: New polyethylene glycol 3350 17 gram Powder In Packet 17 g PO DAILY Qty: 30 0RF metronidazole 500 mg Tablet 500 mg PO Q12H Qty: 6 0RF doxycycline monohydrate 100 mg Capsule 100 mg PO Q12H Qty: 6 0RF Continued aspirin 81 mg Tablet,Delayed Release (Dr/Ec) 81 mg PO DAILY acetaminophen [8 Hour Pain Reliever] 650 mg tablet extended release 1 tab PO Q8H PRN (Reason: pain) tamsulosin 0.4 mg capsule 1 cap PO DAILY pantoprazole 40 mg tablet,delayed release (DR/EC) 1 tab PO DAILY Discontinued atorvastatin 40 mg tablet 1 tab PO DAILY Discharge Orders: Discharge Order (Routine); Ordered 04/06/22 Ordered By: Rich Pradhan Diet: Advance to usual diet Activity on Discharge: As tolerated Stand Alone Forms: Patient Portal Discharge page Care Plan Goals: colonic stricture status post dilatation segmental colitis likely ischemic bilateral lower extremity cellulitis acute on chronic normocytic anemia status post 1 unit of packed RBC unspecified dementia protein calorie malnutrition use in showed can with t.i.d. Health Concerns: . Lipitor due to LDL 35 only take all other medications as prescribed Plan of Treatment: outpatient follow-up with primary care physician Assessment: as above
--- NOTE | 2022-04-06 12:21 | MHC.CM.PN ---
PATIENT TO DC TO [facility] FOR [address]30 [facility] PATIENT, RN, AND UNIT AWARE. PREVIOUS CM INFORMED FAMILY OF TODAY'S TRANSFER. ADAMA [phone] ([employer]STER IN [employer]) IMM 04/05/22 IN CHART
[2022-04-06 15:17] VITALS: BP 103/61; PULSE 89; RESP 18; TEMP 37; O2SAT 100
== END 2022-04-06 15:29 | disposition skilled nursing facility (03) | DRG 394 ==
LOC: HO.ED 22:40 → HO.EDOVER 04-03 01:48 → HO.S3 04-04 12:46
PROVIDERS: Internal Medicine Gastroenterology; Surgery; Admitting Provider Internal Medicine; Emergency Provider Emergency Medicine; PCP Internal Medicine; Visit Provider Hospitalist
PROC: 0DJD8ZZ Inspection of Lower Intestinal Tract, Via Natural or Artificial Opening Endoscopic (ICD-10-PCS; CPT 45330; principal; 2022-04-04 10:30)
DX: K55.031 Focal (segmental) acute (reversible) ischemia of large intestine (principal); E46 Unspecified protein-calorie malnutrition; L03.116 Cellulitis of left lower limb; L03.115 Cellulitis of right lower limb; K92.1 Melena; K62.4 Stenosis of anus and rectum; N40.0 Benign prostatic hyperplasia without lower urinary tract symptoms; D64.9 Anemia, unspecified; I10 Essential (primary) hypertension; Z68.20 Body mass index [BMI] 20.0-20.9, adult; F03.90 Unspecified dementia, unspecified severity, without behavioral disturbance, psychotic disturbance, mood disturbance, and anxiety; E78.5 Hyperlipidemia, unspecified; Z20.822 Contact with and (suspected) exposure to COVID-19; Z79.82 Long term (current) use of aspirin; Z79.899 Other long term (current) drug therapy
CPT/HCPCS: 0241U; 36415; 71045; 73060; 74176; 80048; 80053; 80061; 81003; 82272; 83605; 83615; 84134; 84484; 85025; 85027; 85610; 86850; 86900; 86901; 86923; 87040; 87493; 87507; 87633; 88305; 97162; 99285; C1726; J0696; J1200; J2543; J3370

== ENCOUNTER 2022-06-04 14:56 | Outpatient (REF) | payer MEDICARE, OTHER, SELFPAY | END 2022-06-04 14:57 | disposition home or self-care (01) | LOC: HO.LAB 14:56 | PROVIDERS: PCP Internal Medicine; Visit Provider Internal Medicine | DX: Z13.89 Encounter for screening for other disorder (principal) ==